=== PATIENT | female | born 1950 | race Caucasian/White ===

== ENCOUNTER 2016-07-16 08:35 | Emergency (ER) | payer MEDICARE ==
[~2016-07-16] VITALS: Ht 152.4 cm; Wt 64.0 kg
[~2016-07-16 08:35] MED LIST: ALPR.25 PO; ATOR20TA42 PO; BACT800T5 PO; CIPR250T2 PO; DILA4TAB10 PO; GLIM1 PO; HYDR50TA5 PO; METF500 PO
[2016-07-16 08:37] VITALS: BP 166/96; PULSE 72; RESP 18; TEMP 98; O2SAT 99
[2016-07-16] MEDS ORDERED: LORazepam 2 MG/ML VIAL IM ONE ×2 (09:00→10:15)
[2016-07-16] MEDS ORDERED: GLIM2TAB PO (09:02)
[2016-07-16] MEDS ORDERED: HYDR50TA3 PO (09:02)
[2016-07-16] MEDS ORDERED: METF500T PO (09:02)
[2016-07-16] MEDS ORDERED: LIPI40TA PO (09:02)
[2016-07-16] MEDS ORDERED: ALPR.5 PO (09:02)
[2016-07-16] MEDS ORDERED: DILA4TAB2 PO (09:03)
--- NOTE | 2016-07-16 09:07 | PD ---
HPI Chief Complaint: Flank/Kidney Pain Time Seen by Provider: 08:59 Travel History International Travel<30 days: No Contact w/Intl Traveler<30days: No Traveled to known affect area: No History of Present Illness HPI Patient presents with a primary complaint of lower back pain and withdrawal- type symptoms. Patient is undergone multiple procedures associated with kidney stones including lithotripsy and stent placements. Over the last month she was taking Dilaudid 4 mg every 4 hours regularly. States she's been tapering off and admits to tremors which she feels are causing her lower back pain. Denies any new chest pain shortness of breath urinary or bowel symptoms. Denies any nausea vomiting diarrhea or fever. PFSH Past Medical History Hx Anticoagulant Therapy: No Anxiety: Yes Depression: Yes Cancer: Yes (COLON-1998) Cardiovascular Problems: No High Cholesterol: Yes Chemotherapy: No Cerebrovascular Accident: No Diabetes: Yes Patient Takes Glucophage: Yes Diminished Hearing: No Diverticulitis: Yes Endocrine: Yes Gastrointestinal Disorders: Yes (DIVERTICULITIS) Genitourinary: No Hepatitis: No Hiatal Hernia: No Hypertension: Yes Immune Disorder: No Kidney Stones: Yes Musculoskeletal: No Neurologic: No Psychiatric: Yes (ANXIETY) Reproductive: No Respiratory: No Thyroid Disease: No Tetanus Vaccination: Unknown ?: Not Menopausal: Yes : 3 Para: 2 Past Surgical History Abdominal Surgery: Yes (COLON RESECTION 1999 2ND TO COLON CA AND DIVERTICULITIS ) Body Medical Devices: NONE Cardiac Surgery: No Ear Surgery: No Endocrine Surgery: No Eye Surgery: No Genitourinary Surgery: Yes (SURGERY TO REMOVE KIDNEY STONES, MULTIPLE LITHOTRIPSY) Gynecologic Surgery: Yes (PARTIAL HYSTERECTOMY) Hysterectomy: Yes Joint Replacement: No Oral Surgery: Yes (TONSILLECTOMY) Pacemaker: No Thoracic Surgery: No Other Surgery: Yes (1987, kidney stone - multiple surgerys) Social History Alcohol Use: Yes (SOCIAL) Tobacco Use: No Substance Use: No Allergies-Medications (Allergen,Severity, Reaction): Coded Allergies: No Known Allergies (Verified , 07/16/16) Reported Meds & Prescriptions Reported Meds & Active Scripts Active Reported Dilaudid (Hydromorphone HCl) 4 Mg Tab 4 Mg PO Q4H PRN Xanax (Alprazolam) 0.5 Mg Tab 0.5 Mg PO Q8H PRN Lipitor (Atorvastatin Calcium) 40 Mg Tab 40 Mg PO HS Hydrochlorothiazide 50 Mg Tab 50 Mg PO BID Metformin (Metformin HCl) 500 Mg Tab 500 Mg PO BIDPC With meals Glimepiride 2 Mg Tab 2 Mg PO DAILY Take with breakfast or first main meal Review of Systems General / Constitutional: No: Fever Eyes: No: Visual changes HENT: No: Headaches Cardiovascular: No: Chest Pain or Discomfort Respiratory: No: Shortness of Breath Gastrointestinal: No: Abdominal Pain Genitourinary: No: Dysuria Musculoskeletal: No: Pain Skin: No Rash Neurologic: No: Weakness Psychiatric: No: Depression Endocrine: No: Polydipsia Hematologic/Lymphatic: No: Easy Bruising Physical Exam Narrative GENERAL: Well-nourished, well-developed patient. SKIN: Focused skin assessment warm/dry. HEAD: Normocephalic. EYES: No scleral icterus. No injection or drainage. NECK: Supple, trachea midline. No JVD or lymphadenopathy. CARDIOVASCULAR: Regular rate and rhythm without murmurs, gallops, or rubs. RESPIRATORY: Breath sounds equal bilaterally. No accessory muscle use. GASTROINTESTINAL: Abdomen soft, non-tender, nondistended. MUSCULOSKELETAL: No cyanosis, or edema. BACK: Nontender without obvious deformity. No CVA tenderness. Data Data Last Documented VS Vital Signs Date Time Temp Pulse Resp B/P Pulse Ox O2 Delivery O2 Flow Rate FiO2 07/16/16 08:37 98.0 72 18 166/96 99 Orders Urinalysis - C+S If Indicated (07/16/16 08:46) Lorazepam Inj (Ativan Inj) (07/16/16 09:00) Urine Culture (07/16/16 08:48) Lorazepam Inj (Ativan Inj) (07/16/16 10:15) Labs Laboratory Tests Test 07/16/16 08:48 Urine Collection Type CLEAN CATCH Urine Color YELLOW Urine Turbidity CLEAR Urine pH 6.5 Urine Specific [place] 1.018 Urine Protein TRACE mg/dL Urine Glucose (UA) NEG mg/dL Urine Ketones NEG mg/dL Urine Occult Blood TRACE Urine Nitrite NEG Urine Bilirubin NEG Urine Leukocyte Esterase NEG Urine RBC 4-9 /hpf Urine WBC 9-14 /hpf Urine WBC Clumps OCC Urine Squamous Epithelial 6-8 /hpf Cells Urine Amorphous Sediment FEW Microscopic Urinalysis Comment CULTURE INDICATED Urine Collection Time 0848 MDM Medical Decision Making Medical Screen Exam Complete: Yes Emergency Medical Condition: Yes Differential Diagnosis Withdrawal symptoms, UTI, nephrolithiasis Narrative Course Assessment and plan discussed with patient and at bedside. Patient received Ativan with improvement of her symptoms. Feeling much more relaxed. Diagnosis Primary Impression: Drug withdrawal Qualified Code: F11.23 - Opioid withdrawal Patient Instructions: General Instructions Additional Instructions: Encouraged rest fluids and Motrin. Continue taper off Dilaudid. Benzodiazepine as needed. Follow-up with PCP. Return to the emergency room with any new onset of symptoms. Continue with urology. Med/Other Pt SpecificInfo: Prescription(s) given Scripts Diazepam (Valium)5 Mg Tab5 Mg PO TID PRN (drug withdrawal) #20 TAB Ref 0 Prov:Daniele Gay MD 07/16/16 Disposition: 01 DISCHARGE HOME Condition: Good Daniele Gay MD Jul 16, 2016 09:07
[2016-07-16 09:11] LABS: BLOOD, URINE TRACE (NEG); GLUCOSE,URINE NEG (NEG); KETONE, URINE NEG (NEG); NITRITE,URINE NEG (NEG); PH, URINE 6.5 (5.0-8.5)
[2016-07-16 09:13] LABS: METHOD OF COLLECTION CLEAN CATCH; URINE COLOR YELLOW (YELLW/STRAW)
[2016-07-16 09:15] LABS: COMMENT (UR) CULTURE INDICATED; COMMENT2 (UR) MUCOUS PRESENT; CULTURE IF INDICATED CULTURE INDICATED
[2016-07-16] MEDS ORDERED: DIAZ5 PO (11:07)
== END 2016-07-16 11:17 | disposition home or self-care (01) ==
LOC: PHED 08:35
DX: F11.23 Opioid dependence with withdrawal (principal); R82.90 Unspecified abnormal findings in urine; M54.5 Low back pain; E78.00 Pure hypercholesterolemia, unspecified; E11.9 Type 2 diabetes mellitus without complications; I10 Essential (primary) hypertension
CPT/HCPCS: 81001; 87086; 96372; 99284; J2060

== ENCOUNTER 2016-07-23 16:21 | Emergency (ER) | payer MEDICARE ==
[~2016-07-23] VITALS: Ht 152.4 cm; Wt 68.5 kg
[~2016-07-23 16:21] MED LIST changes: -ALPR.25 PO; +ALPR.5 PO; -ATOR20TA42 PO; -BACT800T5 PO; -CIPR250T2 PO; +DIAZ5 PO; -DILA4TAB10 PO; +DILA4TAB2 PO; -GLIM1 PO; +GLIM2TAB PO; +HYDR50TA3 PO; -HYDR50TA5 PO; +LIPI40TA PO; -METF500 PO; +METF500T PO
[2016-07-23 16:29] VITALS: BP 123/88; PULSE 86; RESP 18; TEMP 98; O2SAT 96
--- NOTE | 2016-07-23 16:53 | PD ---
HPI Chief Complaint: Abdominal Pain Time Seen by Provider: 16:40 Travel History International Travel<30 days: No Contact w/Intl Traveler<30days: No Traveled to known affect area: No History of Present Illness HPI The patient is a 65-year-old female who presents emergency department complaints of abdominal pain. The patient has a long-standing history of nephrolithiasis with multiple surgeries including stent placement and lithotripsy for her kidney stones. Patient is followed by Dr. Spann and Dr. Reed. The patient recently had a stent removed at the beginning of July and then underwent stone removal last Sunday. The patient states she was told there is too much swelling of the left ureter to retrieve the stone, therefore, they broke the son abuse and laser therapy. The patient was advised she would have some discomfort, however, is having increasing pain in the left lower quadrant and suprapubic region. She denies any obvious hematuria, does note pain in the left lower aspect of her abdomen. The patient called her urologist office and discuss her situation with the physician human services assistant who referred her to the emergency department. The patient denies any fever, chills, or sweats. Symptoms are moderate, possibly exacerbated by recent procedure for kidney stones, and not alleviated with Dilaudid oral medicine at home. PFSH Past Medical History Hx Anticoagulant Therapy: No Anxiety: Yes Depression: Yes Cancer: Yes (COLON-1998) Cardiovascular Problems: No High Cholesterol: Yes Chemotherapy: No Cerebrovascular Accident: No Diabetes: Yes Diminished Hearing: No Diverticulitis: Yes Endocrine: Yes Gastrointestinal Disorders: Yes (DIVERTICULITIS) Genitourinary: No Hepatitis: No Hiatal Hernia: No Hypertension: Yes Immune Disorder: No Kidney Stones: Yes Musculoskeletal: No Neurologic: No Psychiatric: Yes (ANXIETY) Reproductive: No Respiratory: No Thyroid Disease: No ?: Not Menopausal: Yes : 3 Para: 2 Past Surgical History Abdominal Surgery: Yes (COLON RESECTION 1999 TO COLON CA AND DIVERTICULITIS ) Body Medical Devices: NONE Cardiac Surgery: No Ear Surgery: No Endocrine Surgery: No Eye Surgery: No Genitourinary Surgery: Yes (SURGERY TO REMOVE KIDNEY STONES, MULTIPLE LITHOTRIPSY) Gynecologic Surgery: Yes (PARTIAL HYSTERECTOMY) Hysterectomy: Yes Joint Replacement: No Oral Surgery: Yes (TONSILLECTOMY) Pacemaker: No Thoracic Surgery: No Other Surgery: Yes (1987, kidney stone - multiple surgerys) Social History Alcohol Use: Yes (SOCIAL) Tobacco Use: No Substance Use: No Allergies-Medications (Allergen,Severity, Reaction): Coded Allergies: No Known Allergies (Verified , 07/23/16) Reported Meds & Prescriptions Reported Meds & Active Scripts Active Valium (Diazepam) 5 Mg Tab 5 Mg PO TID PRN Reported Dilaudid (Hydromorphone HCl) 4 Mg Tab 4 Mg PO Q4H PRN Xanax (Alprazolam) 0.5 Mg Tab 0.5 Mg PO Q8H PRN Lipitor (Atorvastatin Calcium) 40 Mg Tab 40 Mg PO HS Hydrochlorothiazide 50 Mg Tab 50 Mg PO BID Metformin (Metformin HCl) 500 Mg Tab 500 Mg PO BIDPC With meals Glimepiride 2 Mg Tab 2 Mg PO DAILY Take with breakfast or first main meal Review of Systems Except as stated in HPI: all other systems reviewed are Neg General / Constitutional: No: Fever Cardiovascular: No: Chest Pain or Discomfort Respiratory: No: Shortness of Breath Gastrointestinal: Positive: Abdominal Pain, No: Nausea, Vomiting Genitourinary: Positive: Pelvic Pain, Other (as noted in the history of present illness), No: Hematuria Physical Exam Narrative GENERAL: Awake, alert, pleasant 65-year-old female who appears her stated age and appears in moderate discomfort. SKIN: Focused skin assessment warm/dry. HEAD: Atraumatic. Normocephalic. EYES: No injection or drainage. ENT: No nasal bleeding or discharge. Mucous membranes pink and moist. NECK: Trachea midline. No JVD. CARDIOVASCULAR: Regular rate and rhythm. No murmur appreciated. RESPIRATORY: No accessory muscle use. Clear to auscultation. Breath sounds equal bilaterally. GASTROINTESTINAL: Abdomen soft, mild tenderness left lower quadrant and suprapubic. No guarding or rigidity. Back: No CVA tenderness. MUSCULOSKELETAL: No obvious deformities. No clubbing. No cyanosis. No edema. NEUROLOGICAL: Awake and alert. No obvious cranial nerve deficits. Motor grossly within normal limits. Normal speech. PSYCHIATRIC: Appropriate mood and affect; insight and judgment normal. Data Data Last Documented VS Vital Signs Date Time Temp Pulse Resp B/P Pulse Ox O2 Delivery O2 Flow Rate FiO2 07/23/16 17:52 76 20 117/71 98 Room Air 07/23/16 16:29 98.0 Orders Basic Metabolic Panel (Bmp) (07/23/16 16:48) Complete Blood Count With Diff (07/23/16 16:48) Urinalysis - C+S If Indicated (07/23/16 16:48) Iv Access Insert/Monitor (07/23/16 16:48) Ecg Monitoring (07/23/16 16:48) Oximetry (07/23/16 16:48) Ondansetron Inj (Zofran Inj) (07/23/16 17:00) Sodium Chloride 0.9% Flush (Ns Flush) (07/23/16 17:00) Ketorolac Inj (Toradol Inj) (07/23/16 17:00) Hydromorphone Pf Inj (Dilaudid Pf Inj) (07/23/16 17:00) Sodium Chlorid 0.9% 500 Ml Inj (Ns 500 M (07/23/16 17:00) Labs Laboratory Tests Test 07/23/16 07/23/16 17:00 17:05 Urine Collection Type CLEAN CATCH Urine Color YELLOW Urine Turbidity CLEAR Urine pH 6.[address] 1.015 Urine Protein NEG mg/dL Urine Glucose (UA) NEG mg/dL Urine Ketones NEG mg/dL Urine Occult Blood TRACE Urine Nitrite NEG Urine Bilirubin NEG Urine Leukocyte Esterase NEG Urine RBC 0-3 /hpf Urine Squamous Epithelial 0-5 /hpf Cells Microscopic Urinalysis Comment CULT NOT INDICATED Urine Collection Time 17:00 White Blood Count 6.2 TH/MM3 Red Blood Count 4.46 MIL/MM3 Hemoglobin 13.0 GM/DL Hematocrit 37.8 % Mean Corpuscular Volume 84.8 FL Mean Corpuscular Hemoglobin 29.1 PG Mean Corpuscular Hemoglobin 34.4 % Concent Red Cell Distribution Width 13.4 % Platelet Count 248 TH/MM3 Mean Platelet Volume 7.3 FL Neutrophils (%) (Auto) 41.0 % Lymphocytes (%) (Auto) 47.5 % Monocytes (%) (Auto) 5.7 % Eosinophils (%) (Auto) 3.5 % Basophils (%) (Auto) 2.3 % Neutrophils # (Auto) 2.6 TH/MM3 Lymphocytes # (Auto) 2.9 TH/MM3 Monocytes # (Auto) 0.4 TH/MM3 Eosinophils # (Auto) 0.2 TH/MM3 Basophils # (Auto) 0.1 TH/MM3 CBC Comment DIFF FINAL Differential Comment Sodium Level 141 MEQ/L Potassium Level 3.6 MEQ/L Chloride Level 102 MEQ/L Carbon Dioxide Level 29.8 MEQ/L Anion Gap 9 MEQ/L Blood Urea Nitrogen 24 MG/DL Creatinine 1.00 MG/DL Estimat Glomerular Filtration 56 ML/MIN Rate Random Glucose 142 MG/DL Calcium Level 9.1 MG/DL MDM Medical Decision Making Medical Screen Exam Complete: Yes Emergency Medical Condition: Yes Medical Record Reviewed: Yes Interpretation(s) Laboratory Tests Test 07/23/16 07/23/16 17:00 17:05 Urine Collection Type CLEAN CATCH Urine Color YELLOW Urine Turbidity CLEAR Urine pH 6.[address] 1.015 Urine Protein NEG mg/dL Urine Glucose (UA) NEG mg/dL Urine Ketones NEG mg/dL Urine Occult Blood TRACE Urine Nitrite NEG Urine Bilirubin NEG Urine Leukocyte Esterase NEG Urine RBC 0-3 /hpf Urine Squamous Epithelial 0-5 /hpf Cells Microscopic Urinalysis Comment CULT NOT INDICATED Urine Collection Time 17:00 White Blood Count 6.2 TH/MM3 Red Blood Count 4.46 MIL/MM3 Hemoglobin 13.0 GM/DL Hematocrit 37.8 % Mean Corpuscular Volume 84.8 FL Mean Corpuscular Hemoglobin 29.1 PG Mean Corpuscular Hemoglobin 34.4 % Concent Red Cell Distribution Width 13.4 % Platelet Count 248 TH/MM3 Mean Platelet Volume 7.3 FL Neutrophils (%) (Auto) 41.0 % Lymphocytes (%) (Auto) 47.5 % Monocytes (%) (Auto) 5.7 % Eosinophils (%) (Auto) 3.5 % Basophils (%) (Auto) 2.3 % Neutrophils # (Auto) 2.6 TH/MM3 Lymphocytes # (Auto) 2.9 TH/MM3 Monocytes # (Auto) 0.4 TH/MM3 Eosinophils # (Auto) 0.2 TH/MM3 Basophils # (Auto) 0.1 TH/MM3 CBC Comment DIFF FINAL Differential Comment Sodium Level 141 MEQ/L Potassium Level 3.6 MEQ/L Chloride Level 102 MEQ/L Carbon Dioxide Level 29.8 MEQ/L Anion Gap 9 MEQ/L Blood Urea Nitrogen 24 MG/DL Creatinine 1.00 MG/DL Estimat Glomerular Filtration 56 ML/MIN Rate Random Glucose 142 MG/DL Calcium Level 9.1 MG/DL Differential Diagnosis Differential diagnosis includes nephrolithiasis, postoperative complication, UTI , hydronephrosis, intractable pain. Narrative Course IV was established, labs were drawn and sent, and the patient was placed on cardiac telemetry monitoring and continuous pulse oximetry monitoring. The patient was administered Dilaudid, Toradol, Zofran, and IV fluids. UA was sent to lab. Nursing staff was unable to provide IV access, therefore, I placed a 20 -gauge 1.88 inch ultrasound-guided IV using a linear probe in the right upper extremity. There was good IV blood return and the IV flowed easily, there was no obvious complications. The patient was administered intravenous pain medications. The patient's white count is unremarkable. Creatinine is within normal limits. UA reveals trace blood but no evidence of infection. The patient was reevaluated at 6:15 PM, her pain is significantly improved. She will be discharged home and will be provided a copy of her lab results at discharge so she can follow-up with her urologist tomorrow. Procedures Procedure Narrative Nursing staff was unable to provide IV access. Therefore, I placed a 20-gauge, 1.88 inch, ultrasound-guided IV in the right upper extremity using a linear probe. The IV flowed easily, there was good blood return, the patient tolerated the procedure without difficulty and there was no obvious complications. Diagnosis Primary Impression: Abdominal pain Qualified Code: R10.30 - Lower abdominal pain Patient Instructions: Narcotic given in the ED, General Instructions Additional Instructions: Follow-up with your urologist tomorrow. Please provide the patient a copy of her lab results at discharge. The patient will have a ride home with her who is driving. Return if symptoms worsen or progress. Med/Other Pt SpecificInfo: No Change to Meds Disposition: 01 DISCHARGE HOME Condition: Stable Ty Mills MD Jul 23, 2016 16:53
[2016-07-23] MEDS ORDERED: ONDANSETRON HCL 4 MG/2 ML VIAL IVP ONE (17:00)
[2016-07-23] MEDS ORDERED: SODIUM CHLORIDE 0.9% FLUSH 10 ML FLUSH IV FLUSH PRN (17:00)
[2016-07-23] MEDS ORDERED: HYDROmorphone HCL PF 1 MG/ML VIAL IVS ONE (17:00)
[2016-07-23] MEDS ORDERED: KETOROLAC TROMETHAMINE 30 MG/ML (IVP) VIAL IVP ONE (17:00)
[2016-07-23] MEDS ORDERED: SODIUM CHLORID 0.9% 500 ML INJ 500 ML IV ONE (17:00)
[2016-07-23 17:15] VITALS: PULSE 98; RESP 20; O2SAT 99
[2016-07-23 17:16] LABS: BLOOD, URINE TRACE (NEG); GLUCOSE,URINE NEG (NEG); KETONE, URINE NEG (NEG); NITRITE,URINE NEG (NEG); PH, URINE 6.5 (5.0-8.5)
[2016-07-23 17:17] LABS: AUTOMATED NEUTROPHIL # 2.6 TH/MM3 (1.8-7.7); BASOPHIL # 0.1 TH/MM3 (0-0.2); BASOPHIL % 2.3 % (0.0-2.0); EOSINOPHIL # 0.2 TH/MM3 (0-0.4); EOSINOPHIL % 3.5 % (0.0-4.0); HEMATOCRIT 37.8 % (35.0-46.0); HEMO FLAGS DIFF FINAL; LYMPH % 47.5 % (9.0-44.0); LYMPHOCYTE # 2.9 TH/MM3 (1.0-4.8); MEAN CELL VOLUME 84.8 FL (80.0-100.0); MEAN CORPUSCULAR HEMOGLOBIN 29.1 PG (27.0-34.0); MEAN CORPUSCULAR HGB CONC 34.4 % (32.0-36.0); MONO % 5.7 % (0.0-8.0); PLATELET COUNT 248 TH/MM3 (150-450); RED BLOOD COUNT 4.46 MIL/MM3 (4.00-5.30); RED CELL DISTRIBUTION WIDTH 13.4 % (11.6-17.2); WHITE BLOOD COUNT 6.2 TH/MM3 (4.0-11.0)
[2016-07-23 17:25] LABS: COMMENT (UR) CULT NOT INDICATED; CULTURE IF INDICATED CULT NOT INDICATED; METHOD OF COLLECTION CLEAN CATCH; RBC, URINE 0-3 /hpf (0-3); SQUAMOUS EPITHELIAL CELL URINE 0-5 /hpf (0-5); URINE COLOR YELLOW (YELLW/STRAW)
[2016-07-23 17:28] LABS: POTASSIUM 3.6 MEQ/L (3.5-5.1)
[2016-07-23 17:31] LABS: BICARBONATE 29.8 MEQ/L (21.0-32.0)
[2016-07-23 17:52] VITALS: BP 117/71; PULSE 76; RESP 20; O2SAT 98
[2016-07-23 19:29] VITALS: BP 128/85
== END 2016-07-23 19:33 | disposition home or self-care (01) ==
LOC: PHED 16:21
DX: R10.30 Lower abdominal pain, unspecified (principal)
CPT/HCPCS: 80048; 81001; 85025; 96374; 96375; 99284; J1170; J1885; J2405; J7040

== ENCOUNTER 2016-12-31 18:08 | Inpatient (IN) | payer MEDICARE ==
[~2016-12-31] VITALS: Ht 152.4 cm; Wt 160.0 kg
[~2016-12-31 18:08] MED LIST changes: +DILA4TAB10 PO; -DILA4TAB2 PO
[2016-12-31 18:15] VITALS: BP_SYST 194; BP_DIAS 11; BP_DIAS 111; PULSE 93; RESP 20; TEMP 98.2; O2SAT 98
[2016-12-31 19:17] LABS: BLOOD, URINE MOD (NEG); GLUCOSE,URINE NEG (NEG); KETONE, URINE NEG (NEG); NITRITE,URINE NEG (NEG)
[2016-12-31 19:24] VITALS: BP 178/103; PULSE 86; RESP 16; O2SAT 98
[2016-12-31] MEDS ORDERED: ZOFR4TAB3 SL (19:34)
[2016-12-31 19:37] LABS: MUCUS URINE OCC /lpf (OCC); SQUAMOUS EPITHELIAL CELL URINE 0-5 /hpf (0-5); URINE COLOR YELLOW (YELLW/STRAW)
[2016-12-31 19:38] LABS: COMMENT (UR) CULT NOT INDICATED; CULTURE IF INDICATED CULT NOT INDICATED; WBC, URINE 0-2 /hpf (0-5)
[2016-12-31] MEDS ORDERED: SODIUM CHLORIDE 0.9% FLUSH 10 ML FLUSH IV FLUSH PRN ×2 (20:00→22:00)
[2016-12-31 20:12] LABS: AUTOMATED NEUTROPHIL # 6.3 TH/MM3 (1.8-7.7); BASOPHIL # 0.1 TH/MM3 (0-0.2); BASOPHIL % 0.6 % (0.0-2.0); EOSINOPHIL # 0.1 TH/MM3 (0-0.4); EOSINOPHIL % 1.5 % (0.0-4.0); HEMATOCRIT 40.2 % (35.0-46.0); HEMO FLAGS DIFF FINAL; LYMPHOCYTE # 2.5 TH/MM3 (1.0-4.8); MEAN CELL VOLUME 86.1 FL (80.0-100.0); MEAN CORPUSCULAR HEMOGLOBIN 29.2 PG (27.0-34.0); MEAN CORPUSCULAR HGB CONC 33.9 % (32.0-36.0); MONO % 5.5 % (0.0-8.0); NEUT % 66.4 % (16.0-70.0); PLATELET COUNT 272 TH/MM3 (150-450); RED BLOOD COUNT 4.67 MIL/MM3 (4.00-5.30); RED CELL DISTRIBUTION WIDTH 13.3 % (11.6-17.2); WHITE BLOOD COUNT 9.5 TH/MM3 (4.0-11.0)
[2016-12-31] MEDS ORDERED: ONDANSETRON HCL 4 MG/2 ML VIAL IV PUSH ONE (20:15)
[2016-12-31] MEDS ORDERED: KETOROLAC TROMETHAMINE 30 MG/ML (IVP) VIAL IV PUSH ONE (20:15)
[2016-12-31] MEDS ORDERED: HYDROmorphone HCL PF 1 MG/ML VIAL IV PUSH ONE ×2 (20:15→21:30)
--- NOTE | 2016-12-31 20:17 | PD ---
HPI Chief Complaint: Flank/Kidney Pain Time Seen by Provider: 19:17 Travel History International Travel<30 days: No Contact w/Intl Traveler<30days: No Traveled to known affect area: No History of Present Illness HPI 66 yo f presents to the ED with a cc of L flank pain. She states that a little over a week ago she was treated with lithotripsy for a 9-11mm L sided kidney stone. Following the procedure the pain improved but earlier today she had an attack of sharp pain with associated nausea and rigors. She has a history of medullary sponge kidney and has had 5 episodes of nephrolithiasis over the past year. She has previously had stents placed and has undergone lithotripsy as well. Denies CP/SOB. No headaches or vision changes. She has been able to pass urine, although she states it was bloody. She has no bloody or black stools. PFSH Past Medical History Hx Anticoagulant Therapy: Yes Anxiety: Yes Depression: Yes Cancer: Yes (COLON-1998) Cardiovascular Problems: No High Cholesterol: Yes Chemotherapy: No Cerebrovascular Accident: No Diabetes: Yes Patient Takes Glucophage: Yes Diminished Hearing: No Diverticulitis: Yes Endocrine: Yes Gastrointestinal Disorders: Yes (DIVERTICULITIS) Genitourinary: No Hepatitis: No Hiatal Hernia: No Hypertension: Yes Immune Disorder: No Kidney Stones: Yes Medical other: Yes (HX OF CYTOMEGALO VIRUS) Musculoskeletal: No Neurologic: No Psychiatric: Yes (ANXIETY) Reproductive: No Respiratory: No Thyroid Disease: No ?: Not Menopausal: Yes : 3 Para: 2 Past Surgical History Abdominal Surgery: Yes (COLON RESECTION 1999 2ND TO COLON CA AND DIVERTICULITIS ) Body Medical Devices: NONE Cardiac Surgery: No Ear Surgery: No Endocrine Surgery: No Eye Surgery: No Genitourinary Surgery: Yes (SURGERY TO REMOVE KIDNEY STONES, MULTIPLE LITHOTRIPSY) Gynecologic Surgery: Yes (PARTIAL HYSTERECTOMY) Hysterectomy: Yes Joint Replacement: No Neurologic Surgery: No Oral Surgery: Yes (TONSILLECTOMY) Pacemaker: No Thoracic Surgery: No Other Surgery: Yes (1987, kidney stone - multiple surgerys) Social History Alcohol Use: Yes (SOCIAL) Tobacco Use: No Substance Use: No Allergies-Medications (Allergen,Severity, Reaction): Coded Allergies: No Known Allergies (Verified Allergy, Unknown, 12/31/16) Reported Meds & Prescriptions Reported Meds & Active Scripts Active Valium (Diazepam) 5 Mg Tab 5 Mg PO TID PRN Reported Zofran Odt (Ondansetron Odt) 4 Mg Tab 4 Mg SL ONCE Dilaudid (Hydromorphone HCl) 4 Mg Tab 4 Mg PO Q4H PRN Xanax (Alprazolam) 0.5 Mg Tab 0.5 Mg PO Q8H PRN Lipitor (Atorvastatin Calcium) 40 Mg Tab 40 Mg PO HS Hydrochlorothiazide 50 Mg Tab 50 Mg PO BID Metformin (Metformin HCl) 500 Mg Tab 500 Mg PO BIDPC With meals Glimepiride 2 Mg Tab 2 Mg PO DAILY Take with breakfast or first main meal Review of Systems Except as stated in HPI: all other systems reviewed are Neg Physical Exam Narrative GENERAL: patient is laying in bed no acute distress SKIN: Warm and clammy. HEAD: Atraumatic. Normocephalic. EYES: Pupils equal and round. No scleral icterus. No injection or drainage. ENT: No nasal bleeding or discharge. Mucous membranes pink and moist. NECK: Trachea midline. No JVD. CARDIOVASCULAR: Regular rate and rhythm. RESPIRATORY: No accessory muscle use. Clear to auscultation. Breath sounds equal bilaterally. GASTROINTESTINAL: Abdomen soft, tender to palpation on the L flank and CVA tenderness on the left as well, nondistended. Hepatic and splenic margins not palpable. MUSCULOSKELETAL: Extremities without clubbing, cyanosis, or edema. No obvious deformities. NEUROLOGICAL: Awake and alert. No obvious cranial nerve deficits. Motor grossly within normal limits. Five out of 5 muscle strength in the arms and legs. Normal speech. PSYCHIATRIC: Appropriate mood and affect; insight and judgment normal. Data Data Last Documented VS Vital Signs Date Time Temp Pulse Resp B/P (MAP) Pulse Ox O2 Delivery O2 Flow Rate FiO2 12/31/16 20:37 72 16 166/89 (114) 100 Room Air 12/31/16 18:15 98.2 Orders Orders Urinalysis - C+S If Indicated (12/31/16 18:43) Basic Metabolic Panel (Bmp) (12/31/16 19:54) Complete Blood Count With Diff (12/31/16 19:54) Prothrombin Time / Inr (Pt) (12/31/16 19:54) Act Partial Throm Time (Ptt) (12/31/16 19:54) Iv Access Insert/Monitor (12/31/16 19:54) Ecg Monitoring (12/31/16 19:54) Oximetry (12/31/16 19:54) Sodium Chloride 0.9% Flush (Ns Flush) (12/31/16 20:00) Ct Abd/Pel W/O Iv Contrast (12/31/16 ) Ketorolac Inj (Toradol Inj) (12/31/16 20:15) Hydromorphone Pf Inj (Dilaudid Pf Inj) (12/31/16 20:15) Ondansetron Inj (Zofran Inj) (12/31/16 20:15) Hydromorphone Pf Inj (Dilaudid Pf Inj) (12/31/16 21:30) Admit Order (Ed Use Only) (12/31/16 ) Tamsulosin (Flomax) (12/31/16 22:00) Admit To Inpatient (12/31/16 ) Vital Signs (Adult) Q4H (12/31/16 21:55) Activity Oob Ad Heydi (12/31/16 21:55) Intake + Output TONY.QSHIFT (12/31/16 21:55) Diet Regular Basic (01/01/17 Breakfast) Sodium Chlor 0.9% 1000 Ml Inj (Ns 1000 M (12/31/16 21:55) Sodium Chloride 0.9% Flush (Ns Flush) (12/31/16 22:00) Sodium Chloride 0.9% Flush (Ns Flush) (01/01/17 09:00) Ondansetron Inj (Zofran Inj) (12/31/16 22:00) Comprehensive Metabolic Panel (01/01/17 06:00) Complete Blood Count With Diff (01/01/17 06:00) Scd Bilateral/Knee High TONY.BID (12/31/16 21:55) David Bilateral/Knee High TONY.QSHIFT (12/31/16 22:00) Acetaminophen (Tylenol) (12/31/16 22:00) Hydromorphone Pf Inj (Dilaudid Pf Inj) (12/31/16 22:00) Hydromorphone (Dilaudid) (12/31/16 22:00) Docusate Sodium-Senna (Tenisha-Colace) (01/01/17 09:00) Magnesium Hydroxide Liq (Milk Of Magnesi (12/31/16 22:00) Sennosides (Senokot) (12/31/16 22:00) Bisacodyl Supp (Dulcolax Supp) (12/31/16 22:00) Lactulose Liq (Lactulose Liq) (12/31/16 22:00) Inpatient Certification (12/31/16 ) Consult Urology (12/31/16 ) Alprazolam (Xanax) (12/31/16 22:00) Labs Laboratory Tests Test 12/31/16 19:00 12/31/16 20:00 Urine Color YELLOW Urine Turbidity CLEAR Urine pH 6.0 Urine Specific [place] 1.013 Urine Protein NEG mg/dL Urine Glucose (UA) NEG mg/dL Urine Ketones NEG mg/dL Urine Occult Blood MOD Urine Nitrite NEG Urine Bilirubin NEG Urine Leukocyte Esterase NEG Urine RBC 4-9 /hpf Urine WBC 0-2 /hpf Urine Squamous Epithelial Cells 0-5 /hpf Urine Mucus OCC /lpf Microscopic Urinalysis Comment CULT NOT INDICATED White Blood Count 9.5 TH/MM3 Red Blood Count 4.67 MIL/MM3 Hemoglobin 13.6 GM/DL Hematocrit 40.2 % Mean Corpuscular Volume 86.1 FL Mean Corpuscular Hemoglobin 29.2 PG Mean Corpuscular Hemoglobin Concent 33.9 % Red Cell Distribution Width 13.3 % Platelet Count 272 TH/MM3 Mean Platelet Volume 7.4 FL Neutrophils (%) (Auto) 66.4 % Lymphocytes (%) (Auto) 26.0 % Monocytes (%) (Auto) 5.5 % Eosinophils (%) (Auto) 1.5 % Basophils (%) (Auto) 0.6 % Neutrophils # (Auto) 6.3 TH/MM3 Lymphocytes # (Auto) 2.5 TH/MM3 Monocytes # (Auto) 0.5 TH/MM3 Eosinophils # (Auto) 0.1 TH/MM3 Basophils # (Auto) 0.1 TH/MM3 CBC Comment DIFF FINAL Differential Comment Prothrombin Time 10.1 SEC Prothromb Time International Ratio 0.9 RATIO Activated Partial Thromboplast Time 25.9 SEC Blood Urea Nitrogen 21 MG/DL Creatinine 0.83 MG/DL Random Glucose 205 MG/DL Calcium Level 9.1 MG/DL Sodium Level 139 MEQ/L Potassium Level 3.2 MEQ/L Chloride Level 104 MEQ/L Carbon Dioxide Level 24.3 MEQ/L Anion Gap 11 MEQ/L Estimat Glomerular Filtration Rate 69 ML/MIN MDM Medical Decision Making Medical Screen Exam Complete: Yes Emergency Medical Condition: Yes Differential Diagnosis nephrolithiasis, hydronephrosis, pyelonephritis, perinephric abscess unlikely, medullary sponge kidney Narrative Course Patient roomed emergency department, she does take 4 mg tablets of Dilaudid at home for intermittent kidney pain. She's given a milligram of Dilaudid as well as Toradol. Labs are fairly reassuring, CAT scan noncontrast the abdomen does show 4.5 mm UPJ stone which is obstructing. There is significant amount of hydronephrosis on the left as well. The patient was counseled carefully, she still having some pain in addition dose of Dilaudid was ordered. She couldn't ferry go home to follow-up with her urologist this week. I informed her that this is a reasonable option only for pain is fairly well-controlled. She is fairly anxious and states that she thinks that they've wanted here is working but she is unsure as to when she goes home. I also informed her that she could return to the emergency department. Sufficiently anxious the patient is now agreeable for admission to the hospital. Patient was discussed with Dr. Ramone Domingo who is on-call for urology, her urologist does not come to this hospital. He recommends Flomax observation for pain control and he will see in consultation. Patient was then discussed with Dr. Alston for admission. Diagnosis Primary Impression: Obstructive uropathy Admitting Information Admitting Physician Requests: Observation Condition: Stable José Manuel Bauer MD Dec 31, 2016 20:17
[2016-12-31 20:21] LABS: POTASSIUM 3.2 MEQ/L (3.5-5.1)
[2016-12-31 20:24] LABS: BICARBONATE 24.3 MEQ/L (21.0-32.0)
[2016-12-31 20:27] LABS: APTT (PATIENT) 25.9 SEC (24.3-30.1); INTERNATIONAL NORMALIZED RATIO 0.9 RATIO; PROTHROMBIN TIME - PATIENT 10.1 SEC (9.8-11.6)
[2016-12-31 20:37] VITALS: BP 166/89; PULSE 72; RESP 16; O2SAT 100
--- NOTE | 2016-12-31 20:58 | RADRPT ---
EXAM DATE/TIME: 12/31/2016 20:16 [place] COMPARISON: No previous studies available for comparison. INDICATIONS : Left flank pain. ORAL CONTRAST: No oral contrast ingested. RADIATION DOSE: 20.27 CTDIvol (mGy) MEDICAL HISTORY : Diverticulitis. Carcinoma, colon. Diabetes mellitus type 2.Hypertension. SURGICAL HISTORY : Colon resection. Hysterectomy. ENCOUNTER: Initial ACUITY: 3 days PAIN SCALE: 10/10 LOCATION: Left flank TECHNIQUE: Volumetric scanning of the abdomen and pelvis was performed. Using automated exposure control and ad justment of the mA and/or kV according to patient size, radiation dose was kept as low as reasonably achievable to obtain optimal diagnostic quality images. DICOM format image data is available electro nically for review and comparison. FINDINGS: There is a left sided obstructive uropathy and moderate left hydronephrosis. The largest calculus in the ureter is at the left UVJ measuring about 4.5 mm in diameter. There are numerous additional 1-2 m m calculi within the distal left ureter above the 4.5 mm calculus. Innumerable calculi are present in both kidneys ranging in size from about 1 mm to 6 mm on the left and 1 mm to 3 mm on the right. No r ight-sided hydronephrosis or obstructive uropathy. Diffuse fatty liver. Spleen, adrenals and pancreas unremarkable. No free fluid. No bowel obstruction. Mild constipation. Mild scoliosis. CONCLUSION: 1. Left sided obstructive uropathy and moderate left hydronephrosis with a 4.5 mm calculus at the lef t UVJ. There are numerous additional 1-2 mm calculi in the distal 5 cm of the left ureter. No right-s ided obstructive uropathy. Numerous calculi in both kidneys as above. 2. Hepatic steatosis. Fly Marsh MD on December 31, 2016 at 20:47 Board Certified Radiologist. This report was verified electronically.
[2016-12-31] MEDS ORDERED: SODIUM CHLOR 0.9% 1000 ML INJ 1,000 ML IV SCH (21:55)
[2016-12-31] MEDS ORDERED: ACETAMINOPHEN 325 MG TAB PO PRN (22:00)
[2016-12-31] MEDS ORDERED: BISACODYL 10 MG SUPP RECTAL PRN (22:00)
[2016-12-31] MEDS ORDERED: MAGNESIUM HYDROXIDE SUSP 30 ML CUP PO PRN (22:00)
[2016-12-31] MEDS ORDERED: SENNOSIDES 8.6 MG TAB PO PRN (22:00)
[2016-12-31] MEDS ORDERED: HYDROmorphone HCL 2 MG TAB PO PRN (22:00)
[2016-12-31] MEDS ORDERED: LACTULOSE SYRUP 20 GM/30 ML CUP PO PRN (22:00)
[2016-12-31 22:20] VITALS: BP 166/77; PULSE 72; RESP 18
[2016-12-31] MEDS: TAMSULOSIN HCL 0.4 MG CAP PO SCH (22:31)
[2016-12-31] MEDS: ALPRAZolam 0.5 MG TAB PO PRN (23:12)
[2016-12-31 23:59] VITALS: BP 193/93; PULSE 68; RESP 18; TEMP 96.8; O2SAT 94
[2017-01-01] MEDS ORDERED: ENALAPRILAT 1.25 MG/ML VIAL IV PUSH ONE
[2017-01-01] MEDS: HYDROmorphone HCL PF 1 MG/ML VIAL IV PUSH PRN ×5 (03:32→21:30)
[2017-01-01] MEDS: ONDANSETRON HCL 4 MG/2 ML VIAL IVP PRN ×3 (03:43→19:00)
[2017-01-01 04:00] VITALS: BP 137/69; PULSE 70; RESP 18; TEMP 98.2; O2SAT 95
[2017-01-01 06:02] LABS: AUTOMATED NEUTROPHIL # 7.5 TH/MM3 (1.8-7.7); BASOPHIL % 0.1 % (0.0-2.0); EOSINOPHIL % 0.1 % (0.0-4.0); HEMATOCRIT 37.5 % (35.0-46.0); HEMO FLAGS DIFF FINAL; LYMPH % 13.8 % (9.0-44.0); LYMPHOCYTE # 1.3 TH/MM3 (1.0-4.8); MEAN CELL VOLUME 86.5 FL (80.0-100.0); MEAN CORPUSCULAR HEMOGLOBIN 28.6 PG (27.0-34.0); MEAN CORPUSCULAR HGB CONC 33.1 % (32.0-36.0); MONO % 4.8 % (0.0-8.0); NEUT % 81.2 % (16.0-70.0); PLATELET COUNT 251 TH/MM3 (150-450); RED BLOOD COUNT 4.34 MIL/MM3 (4.00-5.30); RED CELL DISTRIBUTION WIDTH 13.3 % (11.6-17.2); WHITE BLOOD COUNT 9.2 TH/MM3 (4.0-11.0)
[2017-01-01 06:21] LABS: CHLORIDE 105 MEQ/L (98-107); POTASSIUM 3.4 MEQ/L (3.5-5.1); SODIUM (NA) 141 MEQ/L (136-145)
[2017-01-01 06:26] LABS: ANION GAP 9 MEQ/L (5-15); BICARBONATE 27.2 MEQ/L (21.0-32.0); BLOOD UREA NITROGEN 22 MG/DL (7-18)
[2017-01-01 06:29] LABS: ALT (GPT) 38 U/L (10-53); AST (GOT) 18 U/L (15-37); GLOMERULAR FILTRATION RATE 80 ML/MIN (>89)
[2017-01-01 06:30] LABS: TOTAL BILIRUBIN ADULT 0.7 MG/DL (0.2-1.0)
[2017-01-01 06:32] LABS: ALKALINE PHOSPHATASE 50 U/L (45-117)
[2017-01-01 08:00] VITALS: BP 131/73; PULSE 65; RESP 16; TEMP 98.2; O2SAT 97
--- NOTE | 2017-01-01 08:44 | HHI.HP ---
[facility] Stanley Perez MD Admission Diagnosis Obstructive Uropathy. Diagnoses: (1) Abdominal pain Diagnosis: Principal (2) Obstructive uropathy Diagnosis: Principal Chief Complaint: Abdominal pain Travel History International Travel<30 Days: No Contact w/Intl Traveler <30 Da: No Traveled to Known Affected Are: No History of Present Illness Written by Tank Brewer, acting as scribe for Dr. Oleary on 01/01/17 at 08 :42. 66-year-old female with rather complex history of renal lithiasis, medullary kidney, diabetes who presented to hospital because acute onset abdominal pain. Patient states that she has normal state of health until 9:30 yesterday morning when she was sitting watching TV and got a sudden onset of sharp stabbing pain in her left flank radiating down into her groin. She states the pain was a 14/10 on a pain scale. Patient does have recent history of urological procedures and she has chronic recurrent renal lithiasis, because of those reasons she knew that she had another kidney stones that he came to the hospital for evaluation. Patient did just had lithotripsy on December 22. She is followed by Dr. Vazquez on a regular basis. She does have follow-up appointment with him next week from her recent lithotripsy. Patient had workup done emergency department and found to have obstructive uropathy with 4.5 mm calculus at the left UVJ junction with moderate left hydronephrosis. Patient denies any fever, chills, dysuria, hematuria. She has had persistent nausea and vomiting despite use of Zofran. Patient was admitted the hospital for further evaluation management. Review of Systems Gastrointestinal: COMPLAINS OF: Abdominal pain Except as stated in HPI: all other systems reviewed are Neg Past Family Social History Past Medical History Recurrent renal lithiasis Medullary kidney Diabetes History diverticulitis Hypertension Hyperlipidemia Past Surgical History Partial colectomy Multiple cystoscopies, lithotripsy Hysterectomy Right thumb surgery Tonsillectomy Reported Medications Reported Meds & Active Scripts Active Valium (Diazepam) 5 Mg Tab 5 Mg PO TID PRN Reported Zofran Odt (Ondansetron Odt) 4 Mg Tab 4 Mg SL ONCE Dilaudid (Hydromorphone HCl) 4 Mg Tab 4 Mg PO Q4H PRN Xanax (Alprazolam) 0.5 Mg Tab 0.5 Mg PO Q8H PRN Lipitor (Atorvastatin Calcium) 40 Mg Tab 40 Mg PO HS Hydrochlorothiazide 50 Mg Tab 50 Mg PO BID Metformin (Metformin HCl) 500 Mg Tab 500 Mg PO BIDPC With meals Glimepiride 2 Mg Tab 2 Mg PO DAILY Take with breakfast or first main meal Allergies: Coded Allergies: No Known Allergies (Verified Allergy, Unknown, 12/31/16) Family History Reviewed is significant for father with kidney and colon cancer, mother with heart disease and dementia Social History Patient denies any tobacco, alcohol or illicit drugs Physical Exam Vital Signs Vital Signs Date Time Temp Pulse Resp B/P (MAP) Pulse Ox O2 Delivery O2 Flow Rate FiO2 01/01/17 04:00 98.2 70 18 137/69 (91) 95 12/31/16 23:59 96.8 68 18 193/93 (126) 94 12/31/16 22:20 72 18 166/77 (106) 12/31/16 20:37 72 16 166/89 (114) 100 Room Air 12/31/16 19:24 86 16 178/103 (128) 98 Room Air 12/31/16 18:15 98.2 93 20 194/111 (138) 98 Physical Exam GENERAL: Well-developed, well-nourished, in no acute distress. alert and orientated HEENT: Head is normocephalic without any lesions or masses noted. Facial features are symmetric. Eyes: Pupils equal round reactive to light. Extraocular muscles are intact. Conjunctivae were clear. Oropharyngeal: Pharynx without any erythema edema. Tongue is midline without deviation. Buccal mucosa is moist without any masses or lesions NECK: Supple without any masses. Trachea midline no deviation. No JVD, no bruits are appreciated CARDIAC: Regular rhythm, regular rate. S1/S2 are heard. 2 or 6 ejection murmur , no gallops or rubs. LUNGS: Clear to auscultation bilaterally. No wheeze, rhonchi or rales. No use of accessory muscles on inspiration or expiration. ABDOMEN: Soft, tenderness noted in the left lower quadrant. Nondistended. Bowel sounds heard in all 4 quadrants. No organomegaly or masses. Negative rebound, negative guarding EXTREMITIES: No edema, pulses are equal bilaterally. No cyanosis or clubbing NEUROLOGY: Mood and affect appear appropriate. Cranial nerves II through XII grossly intact. Muscle strength 5/5 in upper and lower extremities bilaterally. Deep tendon reflexes are 2+ in upper and lower extremities bilaterally. Laboratory Laboratory Tests Test 12/31/16 19:00 12/31/16 20:00 01/01/17 05:35 Urine Color YELLOW Urine Turbidity CLEAR Urine pH 6.0 Urine Specific [place] 1.013 Urine Protein NEG Urine Glucose (UA) NEG Urine Ketones NEG Urine Occult Blood MOD Urine Nitrite NEG Urine Bilirubin NEG Urine Leukocyte Esterase NEG Urine RBC 4-9 Urine WBC 0-2 Urine Squamous Epithelial Cells 0-5 Urine Mucus OCC Microscopic Urinalysis Comment CULT NOT INDICATED White Blood Count 9.5 9.2 Red Blood Count 4.67 4.34 Hemoglobin 13.6 12.4 Hematocrit 40.2 37.5 Mean Corpuscular Volume 86.1 86.5 Mean Corpuscular Hemoglobin 29.2 28.6 Mean Corpuscular Hemoglobin Concent 33.9 33.1 Red Cell Distribution Width 13.3 13.3 Platelet Count 272 251 Mean Platelet Volume 7.4 7.5 Neutrophils (%) (Auto) 66.4 81.2 Lymphocytes (%) (Auto) 26.0 13.8 Monocytes (%) (Auto) 5.5 4.8 Eosinophils (%) (Auto) 1.5 0.1 Basophils (%) (Auto) 0.6 0.1 Neutrophils # (Auto) 6.3 7.5 Lymphocytes # (Auto) 2.5 1.3 Monocytes # (Auto) 0.5 0.4 Eosinophils # (Auto) 0.1 0.0 Basophils # (Auto) 0.1 0.0 CBC Comment DIFF FINAL DIFF FINAL Differential Comment Prothrombin Time 10.1 Prothromb Time International Ratio 0.9 Activated Partial Thromboplast Time 25.9 Blood Urea Nitrogen 21 22 Creatinine 0.83 0.73 Random Glucose 205 206 Calcium Level 9.1 8.5 Sodium Level 139 141 Potassium Level 3.2 3.4 Chloride Level 104 105 Carbon Dioxide Level 24.3 27.2 Anion Gap 11 9 Estimat Glomerular Filtration Rate 69 80 Total Protein 6.8 Albumin 3.5 Alkaline Phosphatase 50 Aspartate Amino Transf (AST/SGOT) 18 Alanine Aminotransferase (ALT/SGPT) 38 Total Bilirubin 0.7 Result Diagram: 01/01/1735 01/01/1735 Caprini VTE Risk Assessment Caprini VTE Risk Assessment: Mod/High Risk (score >= 2) Caprini Risk Assessment Model Point Value = 1 Point Value = 2 Point Value = 3 Point Value = 5 Age 41-60 Minor surgery BMI > 25 kg/m2 Swollen legs Varicose veins or History of unexplained or recurrent spontaneous Oral contraceptives or hormone replacement Sepsis (< 1 month) Serious lung disease, including pneumonia (< 1 month) Abnormal pulmonary function Acute myocardial infarction Congestive heart failure (< 1 month) History of inflammatory bowel disease Medical patient at bed rest Age 61-74 Arthroscopic surgery Major open surgery (> 45 min) Laparoscopic surgery (> 45 min) Malignancy Confined to bed (> 72 hours) Immobilizing plaster cast Central venous access Age >= 75 History of VTE Family history of VTE Factor V Leiden Prothrombin [id number] Lupus anticoagulant Anticardiolipin antibodies Elevated serum homocysteine Heparin-induced thrombocytopenia Other congenital or acquired thrombophilia Stroke (< 1 month) Elective arthroplasty Hip, pelvis, or leg fracture Acute spinal cord injury (< 1 month) Prophylaxis Regimen Total Risk Factor Score Risk Level Prophylaxis Regimen 0-1 Low Early ambulation 2 Moderate Order ONE of the following: *Sequential Compression Device (SCD) *Heparin 5000 units SQ BID 3-4 Higher Order ONE of the following medications: *Heparin 5000 units SQ TID *Enoxaparin/Lovenox 40 mg SQ daily (WT < 150 kg, CrCl > 30 mL/min) *Enoxaparin/Lovenox 30 mg SQ daily (WT < 150 kg, CrCl > 10-29 mL/min) *Enoxaparin/Lovenox 30 mg SQ BID (WT < 150 kg, CrCl > 30 mL/min) AND/OR *Sequential Compression Device (SCD) 5 or more Highest Order ONE of the following medications: *Heparin 5000 units SQ TID (Preferred with Epidurals) *Enoxaparin/Lovenox 40 mg SQ daily (WT < 150 kg, CrCl > 30 mL/min) *Enoxaparin/Lovenox 30 mg SQ daily (WT < 150 kg, CrCl > 10-29 mL/min) *Enoxaparin/Lovenox 30 mg SQ BID (WT < 150 kg, CrCl > 30 mL/min) AND *Sequential Compression Device (SCD) Assessment and Plan Problem List: (1) Left nephrolithiasis ICD Code: N20.0 - Calculus of kidney (2) Recurrent nephrolithiasis ICD Code: N20.0 - Calculus of kidney Assessment and Plan 66 yrs old female with Left renal lithiasis at UVJ junction with moderate hydronephrosis CT scan does show multiple stones noted in bilateral kidneys. There is a 4.5 mm calculus at the left UVJ junction with moderate hydronephrosis. Discussed with patient's primary urologist Dr. Vazquez office who indicates that she had a bite of food, they aren't able to perform any procedure today Discuss with Dr. Heard, who planned for cystoscopy with stenting this afternoon This was discussed with the patient extensively about outpatient versus inpatient treatment. Patient will like to remain in the hospital for inpatient treatment Continue IV fluids, pain control, antiemetic next line Continue Flomax Accelerated hypertension Blood pressure improved after single dose of Vasotec Continue monitor blood pressure DVT prevention Sequential compression devices, avoid chemical prophylaxis secondary to planned procedure This note was transcribed by jacque Brewer. I, Dr. Shaheen Oleary personally performed the history, physical exam, and medical decision making; and confirmed the accuracy of the information in the transcribed note. Authenticated by Dr. Shaheen Oleary on 01/01/17 at 08:42. Code Status Full code Discussed Condition With Patient, Physician Certification 2 Midnight Certification Type: Admission for Inpatient Services Order for Inpatient Services The services are ordered in accordance with Medicare regulations or non- Medicare payer requirements, as applicable. In the case of services not specified as inpatient-only, they are appropriately provided as inpatient services in accordance with the 2-midnight benchmark. Estimated LOS (days): 2 days is the estimated time the patient will need to remain in the hospital, assuming treatment plan goals are met and no additional complications. Post-Hospital Plan: Not yet determined Tank Brewer Jan 01, 2017 08:44 Shaheen Oleary MD Jan 01, 2017 08:45
[2017-01-01] MEDS: SODIUM CHLORIDE 0.9% FLUSH 10 ML FLUSH IV FLUSH SCH ×2 (09:00→21:33)
[2017-01-01] MEDS: DOCUSATE SODIUM 50 MG/SENNA 8.6 MG TAB PO SCH ×2 (09:00→21:32)
[2017-01-01] MEDS: TAMSULOSIN HCL 0.4 MG CAP PO SCH (09:04)
[2017-01-01] MEDS: ALPRAZolam 0.5 MG TAB PO PRN (09:04)
[2017-01-01 12:00] VITALS: BP 130/78; PULSE 59; RESP 18; TEMP 98.2; O2SAT 97
[2017-01-01] MEDS ORDERED: GLUCAGON 1 MG/ML VIAL OTHER PRN (12:30)
[2017-01-01] MEDS ORDERED: DEXTROSE 50% IN WATER 50 ML VIAL(D50) IV PUSH PRN (12:30)
[2017-01-01] MEDS ORDERED: diphenhydrAMINE HCL 50 MG/ML VIAL IV PUSH PRN (13:30)
[2017-01-01] MEDS ORDERED: ACETAMINOPHEN 1000 MG/100 ML 0 ML IV ONE (14:35)
--- NOTE | 2017-01-01 14:47 | PD.CONS ---
HPI Service Urology Consult Requested By Reason for Consult Nephrolithiasis Primary Care Physician Stanley Perez MD Diagnosis: (1) Left nephrolithiasis ICD Code: N20.0 - Calculus of kidney (2) Recurrent nephrolithiasis ICD Code: N20.0 - Calculus of kidney History of Present Illness 66yo female with history of nephrolithiasis admitted with persistent severe left flank pain and distal obstructing ureteral stone. Patient has been followed by Dr. Reed and underwent recent lithotripsy over a week ago. She was doing well until last night she developed acute onset of left flank pain that was severe, 10/10, radiating to the left groin. CT scan identified severe left sided hydronephrosis with obstructing 4-5mm left distal ureteral stone with several stone proximal to this. No fevers, +N/V. Review of Systems ROS Limitations: Clinical Condition Constitutional: DENIES: Fever Endocrine: DENIES: Abnorml menstrual pattern Eyes: DENIES: Diplopia Ears, nose, mouth, throat: DENIES: Hearing loss Respiratory: DENIES: Apneas, Cough Cardiovascular: DENIES: Chest pain Gastrointestinal: COMPLAINS OF: Abdominal pain, Nausea, Vomiting Genitourinary: COMPLAINS OF: Urinary frequency Musculoskeletal: DENIES: Joint pain Integumentary: DENIES: Rash Hematologic/lymphatic: DENIES: Bruising Neurologic: DENIES: Headache Psychiatric: DENIES: Anxiety Except as stated in HPI: all other systems reviewed are Neg Past Family Social History Past Medical History Recurrent renal lithiasis Medullary kidney Diabetes History diverticulitis Hypertension Hyperlipidemia Past Surgical History Partial colectomy Multiple cystoscopies, lithotripsy Hysterectomy Right thumb surgery Tonsillectomy Reported Medications Reported Meds & Active Scripts Active Valium (Diazepam) 5 Mg Tab 5 Mg PO TID PRN Reported Zofran Odt (Ondansetron Odt) 4 Mg Tab 4 Mg SL ONCE Dilaudid (Hydromorphone HCl) 4 Mg Tab 4 Mg PO Q4H PRN Xanax (Alprazolam) 0.5 Mg Tab 0.5 Mg PO Q8H PRN Lipitor (Atorvastatin Calcium) 40 Mg Tab 40 Mg PO HS Hydrochlorothiazide 50 Mg Tab 50 Mg PO BID Metformin (Metformin HCl) 500 Mg Tab 500 Mg PO BIDPC With meals Glimepiride 2 Mg Tab 2 Mg PO DAILY Take with breakfast or first main meal Allergies: Coded Allergies: No Known Allergies (Verified Allergy, Unknown, 12/31/16) Active Ordered Medications Current Medications Medications (Trade) Dose Ordered Sig/Winnie Route Start Time Stop Time Status Last Admin (Flomax) 0.4 mg DAILY PO 12/31/16 22:00 01/01/17 09:04 (NS Flush) 2 ml UNSCH PRN IV FLUSH 12/31/16 22:00 (NS Flush) 2 ml BID IV FLUSH 01/01/17 09:00 01/01/17 09:00 (Zofran Inj) 4 mg Q6H PRN IVP 12/31/16 22:00 01/01/17 10:44 (Tylenol) 650 mg Q6H PRN PO 12/31/16 22:00 (Dilaudid Pf Inj) 1 mg Q3H PRN IV PUSH 12/31/16 22:00 01/01/17 13:38 (Dilaudid) 4 mg Q4H PRN PO 12/31/16 22:00 (Tenisha-Colace) 1 tab BID PO 01/01/17 09:00 (Milk Of Magnesia Liq) 30 ml Q12H PRN PO 12/31/16 22:00 (Senokot) 17.2 mg Q12H PRN PO 12/31/16 22:00 (Dulcolax Supp) 10 mg DAILY PRN RECTAL 12/31/16 22:00 (Lactulose Liq) 30 ml DAILY PRN PO 12/31/16 22:00 (Xanax) 0.5 mg Q8H PRN PO 12/31/16 22:00 01/01/17 09:04 Potassium Chloride/Sodium Chloride 1,000 ml @ 100 mls/hr Q10H IV 01/01/17 09:00 (D50w (Vial) Inj) 50 ml UNSCH PRN IV PUSH 01/01/17 12:30 (Glucagon Inj) 1 mg UNSCH PRN OTHER 01/01/17 12:30 (NovoLOG SUPPLEMENTAL SCALE) 1 ACHS SLIDING SCALE SQ 01/01/17 17:00 (Benadryl Inj) 25 mg Q6H PRN IV PUSH 01/01/17 13:30 01/01/17 13:37 Family History Reviewed is significant for father with kidney and colon cancer, mother with heart disease and dementia Social History Patient denies any tobacco, alcohol or illicit drugs Physical Exam Vital Signs Date Time Temp Pulse Resp B/P (MAP) Pulse Ox O2 Delivery O2 Flow Rate FiO2 01/01/17 12:00 98.2 59 18 130/78 (95) 97 01/01/17 08:00 98.2 65 16 131/73 (92) 97 01/01/17 04:00 98.2 70 18 137/69 (91) 95 12/31/16 23:59 96.8 68 18 193/93 (126) 94 12/31/16 22:20 72 18 166/77 (106) 12/31/16 20:37 72 16 166/89 (114) 100 Room Air 12/31/16 19:24 86 16 178/103 (128) 98 Room Air 12/31/16 18:15 98.2 93 20 194/111 (138) 98 Physical Exam GENERAL: This is a well-nourished, well-developed patient, in no apparent distress. SKIN: No rashes, ecchymoses or lesions. Cool and dry. HEAD: Atraumatic. Normocephalic. EYES: Extraocular motions intact. No scleral icterus. No injection or drainage. ENT: Nose without bleeding, purulent drainage. Airway patent. NECK: Trachea midline. No JVD or lymphadenopathy. Supple, nontender, no meningeal signs. CARDIOVASCULAR: Normal pulses RESPIRATORY: Nonlabored GASTROINTESTINAL: Abdomen soft, non-tender, nondistended. MUSCULOSKELETAL: Extremities without clubbing, cyanosis NEUROLOGICAL: Awake and alert. Motor and sensory grossly within normal limits. Normal speech. Lab results reviewed: Yes Laboratory Tests Test 12/31/16 19:00 12/31/16 20:00 01/01/17 05:35 Urine Color YELLOW Urine Turbidity CLEAR Urine pH 6.0 Urine Specific [place] 1.013 Urine Protein NEG Urine Glucose (UA) NEG Urine Ketones NEG Urine Occult Blood MOD Urine Nitrite NEG Urine Bilirubin NEG Urine Leukocyte Esterase NEG Urine RBC 4-9 Urine WBC 0-2 Urine Squamous Epithelial Cells 0-5 Urine Mucus OCC Microscopic Urinalysis Comment CULT NOT INDICATED White Blood Count 9.5 9.2 Red Blood Count 4.67 4.34 Hemoglobin 13.6 12.4 Hematocrit 40.2 37.5 Mean Corpuscular Volume 86.1 86.5 Mean Corpuscular Hemoglobin 29.2 28.6 Mean Corpuscular Hemoglobin Concent 33.9 33.1 Red Cell Distribution Width 13.3 13.3 Platelet Count 272 251 Mean Platelet Volume 7.4 7.5 Neutrophils (%) (Auto) 66.4 81.2 Lymphocytes (%) (Auto) 26.0 13.8 Monocytes (%) (Auto) 5.5 4.8 Eosinophils (%) (Auto) 1.5 0.1 Basophils (%) (Auto) 0.6 0.1 Neutrophils # (Auto) 6.3 7.5 Lymphocytes # (Auto) 2.5 1.3 Monocytes # (Auto) 0.5 0.4 Eosinophils # (Auto) 0.1 0.0 Basophils # (Auto) 0.1 0.0 CBC Comment DIFF FINAL DIFF FINAL Differential Comment Prothrombin Time 10.1 Prothromb Time International Ratio 0.9 Activated Partial Thromboplast Time 25.9 Blood Urea Nitrogen 21 22 Creatinine 0.83 0.73 Random Glucose 205 206 Calcium Level 9.1 8.5 Sodium Level 139 141 Potassium Level 3.2 3.4 Chloride Level 104 105 Carbon Dioxide Level 24.3 27.2 Anion Gap 11 9 Estimat Glomerular Filtration Rate 69 80 Total Protein 6.8 Albumin 3.5 Alkaline Phosphatase 50 Aspartate Amino Transf (AST/SGOT) 18 Alanine Aminotransferase (ALT/SGPT) 38 Total Bilirubin 0.7 Result Diagram: 01/01/17 0535 01/01/17 0535 Personally reviewed images: Yes Imaging Last Impressions Abdomen/Pelvis CT 12/31/16 0000 Signed Impressions: Service Date/Time: Saturday, December 31, 2016 20:16 - CONCLUSION: 1. Left sided obstructive uropathy and moderate left hydronephrosis with a 4.5 mm calculus at the left UVJ. There are numerous additional 1-2 mm calculi in the distal 5 cm of the left ureter. No right-sided obstructive uropathy. Numerous calculi in both kidneys as above. 2. Hepatic steatosis. Fly Marsh MD Assessment and Plan Problem List: (1) Obstructive uropathy ICD Code: N13.9 - Obstructive and reflux uropathy, unspecified (2) Recurrent nephrolithiasis ICD Code: N20.0 - Calculus of kidney (3) Left nephrolithiasis ICD Code: N20.0 - Calculus of kidney Assessment and Plan -Her pain is uncontrolled with Dilaudid and Toradol -We discussed intervention with left ureteral stent placement -Patient understands the risks and benefits of the procedure and we will proceed with left ureteral stent placement -She already has a follow-up appt with Dr. Reed next week Delvin Heard MD Jan 01, 2017 14:47
[2017-01-01] MEDS ORDERED: LACTATED RINGER'S 1000 ML INJ 1,000 ML ONE (14:50)
[2017-01-01] MEDS ORDERED: ceFAZolin INJ 1,000 MG VIAL IV ONE (16:13)
[2017-01-01] MEDS ORDERED: RESP: ALBUTEROL 2.5 MG/3 ML NEB (PRN) ONE (16:16)
--- NOTE | 2017-01-01 16:39 | HHI.PR ---
Subjective Patient symptoms today Successful left ureteral stent placement -Patient clear for discharge from Urology standpoint -Follow-up with Urology in clinic in 1-2 weeks. Patient reports has appt with Dr. Reed in 1 week. -Please call with questions Objective Vital Signs Vital Signs Date Time Temp Pulse Resp B/P (MAP) Pulse Ox O2 Delivery O2 Flow Rate FiO2 01/01/17 12:00 98.2 59 18 130/78 (95) 97 01/01/17 08:00 98.2 65 16 131/73 (92) 97 01/01/17 04:00 98.2 70 18 137/69 (91) 95 12/31/16 23:59 96.8 68 18 193/93 (126) 94 12/31/16 22:20 72 18 166/77 (106) 12/31/16 20:37 72 16 166/89 (114) 100 Room Air 12/31/16 19:24 86 16 178/103 (128) 98 Room Air 12/31/16 18:15 98.2 93 20 194/111 (138) 98 Intake & Output 01/01/17 01/01/17 07:00 19:00 Intake Total 480 ml 313 ml Output Total 400 ml 275 ml Balance 80 ml 38 ml Intake Oral 480 ml 60 ml IV Total 253 ml Output Urine Total 400 ml 275 ml # Voids 6 # Bowel Movements 0 Result Diagram: 01/01/17 0535 01/01/17 0535 Medications and IVs Current Medications Medications (Trade) Dose Ordered Sig/Winnie Route Start Time Stop Time Status Last Admin (Flomax) 0.4 mg DAILY PO 12/31/16 22:00 01/01/17 09:04 (NS Flush) 2 ml UNSCH PRN IV FLUSH 12/31/16 22:00 (NS Flush) 2 ml BID IV FLUSH 01/01/17 09:00 01/01/17 09:00 (Zofran Inj) 4 mg Q6H PRN IVP 12/31/16 22:00 01/01/17 10:44 (Tylenol) 650 mg Q6H PRN PO 12/31/16 22:00 (Dilaudid Pf Inj) 1 mg Q3H PRN IV PUSH 12/31/16 22:00 01/01/17 13:38 (Dilaudid) 4 mg Q4H PRN PO 12/31/16 22:00 (Tenisha-Colace) 1 tab BID PO 01/01/17 09:00 (Milk Of Magnesia Liq) 30 ml Q12H PRN PO 12/31/16 22:00 (Senokot) 17.2 mg Q12H PRN PO 12/31/16 22:00 (Dulcolax Supp) 10 mg DAILY PRN RECTAL 12/31/16 22:00 (Lactulose Liq) 30 ml DAILY PRN PO 12/31/16 22:00 (Xanax) 0.5 mg Q8H PRN PO 12/31/16 22:00 01/01/17 09:04 Potassium Chloride/Sodium Chloride 1,000 ml @ 100 mls/hr Q10H IV 01/01/17 09:00 (D50w (Vial) Inj) 50 ml UNSCH PRN IV PUSH 01/01/17 12:30 (Glucagon Inj) 1 mg UNSCH PRN OTHER 01/01/17 12:30 (NovoLOG SUPPLEMENTAL SCALE) 1 ACHS SLIDING SCALE SQ 01/01/17 17:00 (Benadryl Inj) 25 mg Q6H PRN IV PUSH 01/01/17 13:30 01/01/17 13:37 Assessment and Plan Problem List: (1) Obstructive uropathy ICD Code: N13.9 - Obstructive and reflux uropathy, unspecified (2) Recurrent nephrolithiasis ICD Code: N20.0 - Calculus of kidney (3) Left nephrolithiasis ICD Code: N20.0 - Calculus of kidney Delvin Heard MD Jan 01, 2017 16:39
[2017-01-01] MEDS: INSULIN ASPART SUPPLEMENTAL SCALE SQ SCH ×2 (17:00→21:32)
[2017-01-01] MEDS ORDERED: DO NOT ADM ANY ANTICOAGULANT DRUGS PRN (17:00)
[2017-01-01] MEDS ORDERED: IOHEXOL 350 MG/ML 50 ML BTL (for RAD DIAG) OTHER ONE (17:04)
[2017-01-01] MEDS: NS + KCL 20 MEQ INJ 1,000 ML IV SCH ×2 (17:45→19:00)
[2017-01-01 20:00] VITALS: BP 121/72; PULSE 79; RESP 20; TEMP 98.5; O2SAT 95
[2017-01-02] VITALS: BP 113/59; PULSE 77; RESP 20; TEMP 98.4; O2SAT 95
[2017-01-02] MEDS: HYDROmorphone HCL PF 1 MG/ML VIAL IV PUSH PRN ×3 (00:43→08:43)
[2017-01-02] MEDS: ONDANSETRON HCL 4 MG/2 ML VIAL IVP PRN ×2 (03:07→07:59)
[2017-01-02] MEDS: ALPRAZolam 0.5 MG TAB PO PRN (03:21)
[2017-01-02 04:00] VITALS: BP 135/65; PULSE 65; RESP 20; TEMP 98.4; O2SAT 96
[2017-01-02] MEDS: NS + KCL 20 MEQ INJ 1,000 ML IV SCH (04:11)
[2017-01-02 07:22] LABS: AUTOMATED NEUTROPHIL # 6.5 TH/MM3 (1.8-7.7); BASOPHIL % 0.2 % (0.0-2.0); EOSINOPHIL % 0.1 % (0.0-4.0); HEMATOCRIT 35.1 % (35.0-46.0); HEMO FLAGS DIFF FINAL; LYMPH % 20.3 % (9.0-44.0); LYMPHOCYTE # 1.8 TH/MM3 (1.0-4.8); MEAN CELL VOLUME 88.7 FL (80.0-100.0); MEAN CORPUSCULAR HEMOGLOBIN 29.4 PG (27.0-34.0); MEAN CORPUSCULAR HGB CONC 33.1 % (32.0-36.0); MONO % 5.5 % (0.0-8.0); NEUT % 73.9 % (16.0-70.0); PLATELET COUNT 214 TH/MM3 (150-450); RED BLOOD COUNT 3.95 MIL/MM3 (4.00-5.30); RED CELL DISTRIBUTION WIDTH 14.6 % (11.6-17.2); WHITE BLOOD COUNT 8.7 TH/MM3 (4.0-11.0)
[2017-01-02] MEDS: SODIUM CHLORIDE 0.9% FLUSH 10 ML FLUSH IV FLUSH SCH (07:36)
[2017-01-02 07:49] LABS: ANION GAP 9 MEQ/L (5-15); BLOOD UREA NITROGEN 19 MG/DL (7-18); CHLORIDE 106 MEQ/L (98-107); GLOMERULAR FILTRATION RATE 82 ML/MIN (>89); MAGNESIUM 1.9 MG/DL (1.5-2.5); POTASSIUM 3.8 MEQ/L (3.5-5.1); SODIUM (NA) 140 MEQ/L (136-145)
[2017-01-02] MEDS: DOCUSATE SODIUM 50 MG/SENNA 8.6 MG TAB PO SCH (07:59)
[2017-01-02] MEDS: TAMSULOSIN HCL 0.4 MG CAP PO SCH (07:59)
[2017-01-02] MEDS: INSULIN ASPART SUPPLEMENTAL SCALE SQ SCH (07:59)
[2017-01-02 08:00] VITALS: BP 151/87; PULSE 76; RESP 18; TEMP 98.3; O2SAT 97
[2017-01-02 08:04] VITALS: O2SAT 97
--- NOTE | 2017-01-02 09:23 | MP ---
cc: DEBBI NGUYEN MD DATE OF SURGERY 01/01/2017 PREOPERATIVE DIAGNOSIS Left side nephrolithiasis. POSTOPERATIVE DIAGNOSIS Left side nephrolithiasis. SURGEON Debbi Nguyen MD PROCEDURE PERFORMED 1. Cystoscopy. 2. Left ureteral stent placement. PERTINENT FINDINGS 1. Left-sided hydronephrosis, distal obstructing left renal stone. 2. Successful placement of 6 x 22 double J ureteral stent on the left. HISTORY OF THE PRESENT ILLNESS Celina Conley is a 66-year-old female with a history of nephrolithiasis followed by Dr. Reed who underwent recent lithotripsy. She developed severe left-sided flank pain and was found to have a 4.5 cm obstructing left distal ureteral stone and presents now for left ureteral stent placement as her pain is uncontrolled. PROCEDURE IN DETAILS After proper informed consent was obtained the patient was taken to the operating room and laid supine on the operating table. Bilateral SCDs was placed. The patient placed under anesthesia. The patient was in supine position and prepped and draped in the standard sterile fashion. After a proper time out was completed, the scope was placed in the bladder. Bilateral ureters were identified. At this point the left ureteral orifice was identified and a guidewire was advanced in to the left renal pelvis. Mild contrast was administered which identified the proper placement of the left wire into the left collecting system renal pelvis. At this point a 6 x 22 double J ureteral stent was then successfully placed in the left collecting system with good curl in the renal pelvis as well as in the bladder. The patient's bladder was entered and the scope was removed. The patient tolerated the procedure well without complications. DISPOSITION The patient will be discharged home with follow up in the clinic with Dr. Reed for definitive stone management. Debbi Nguyen M.D. SML/KK /4:36 PM /9:16 AM MTDD
--- NOTE | 2017-01-02 09:24 | HHI.PR ---
Subjective Remarks This is a pleasant 66 y/o Female with Urolithiasis, DM II, who came to ER with abdominal pain, Patient does have recent history of urological procedures and she has chronic recurrent renal lithiasis, Patient did just had lithotripsy on December 22. She is followed by Dr. Vazquez on a regular basis. workup done emergency department and found to have obstructive uropathy with 4.5 mm calculus at the left UVJ junction with moderate left hydronephrosis. Patient denies any fever, chills, dysuria, hematuria. has also Hypertension, Hyperlipidemia. 01/02: Seen by Urology specialist now status post Cystoscopy and Left ureteral Stent placement, Clear for discharge by Urology specialist follow up in Urology clinic in 1 to 2 weeks, with Doctor Brianna in one week. with Diagnosis of Obstructive Uropathy, Recurrent nephrolithiasis and left nephrolithiasis. No nausea, vomit or diarrhea, seen in the presence at all times of female nurse Miss Gao. appreciated Objective Vital Signs Date Time Temp Pulse Resp B/P (MAP) Pulse Ox O2 Delivery O2 Flow Rate FiO2 01/02/17 08:04 97 Nasal Cannula 01/02/17 08:00 98.3 76 18 151/87 (108) 97 01/02/17 04:47 18 01/02/17 04:00 98.4 65 20 135/65 (88) 96 01/02/17 00:00 98.4 77 20 113/59 (77) 95 01/01/17 20:00 98.5 79 20 121/72 (88) 95 01/01/17 17:15 83 14 129/76 (93) 100 Nasal Cannula 2 01/01/17 17:00 78 14 160/67 (98) 100 Nasal Cannula 2 01/01/17 16:50 97.4 86 14 143/76 (98) 97 Nasal Cannula 2 01/01/17 12:00 98.2 59 18 130/78 (95) 97 I/O 01/01/17 01/01/17 01/01/17 01/02/17 01/02/17 01/02/17 07:00 15:00 23:00 07:00 15:00 23:00 Intake Total 480 ml 313 ml 1268 ml 1032 ml Output Total 275 ml 0 ml 850 ml Balance 480 ml 38 ml 1268 ml 182 ml Intake Oral 480 ml 60 ml IV Total 253 ml 268 ml 1032 ml Other 1000 ml Output Urine Total 275 ml 850 ml Estimated Blood Loss 0 ml # Voids 4 # Bowel Movements 0 Result Diagram: 01/02/17 0708 01/02/17 0708 Imaging Last Impressions Abdomen/Pelvis CT 12/31/16 0000 Signed Impressions: Service Date/Time: Saturday, December 31, 2016 20:16 - CONCLUSION: 1. Left sided obstructive uropathy and moderate left hydronephrosis with a 4.5 mm calculus at the left UVJ. There are numerous additional 1-2 mm calculi in the distal 5 cm of the left ureter. No right-sided obstructive uropathy. Numerous calculi in both kidneys as above. 2. Hepatic steatosis. Fly Marsh MD Procedures cystoscopy and left ureteral stent. Other Results Laboratory Tests Test 12/31/16 19:00 12/31/16 20:00 01/01/17 05:35 01/02/17 07:08 Urine Color YELLOW Urine Turbidity CLEAR Urine pH 6.0 Urine Specific [place] 1.013 Urine Protein NEG mg/dL Urine Glucose (UA) NEG mg/dL Urine Ketones NEG mg/dL Urine Occult Blood MOD Urine Nitrite NEG Urine Bilirubin NEG Urine Leukocyte Esterase NEG Urine RBC 4-9 /hpf Urine WBC 0-2 /hpf Urine Squamous Epithelial Cells 0-5 /hpf Urine Mucus OCC /lpf Microscopic Urinalysis Comment CULT NOT INDICATED Prothrombin Time 10.1 SEC Prothromb Time International Ratio 0.9 RATIO Activated Partial Thromboplast Time 25.9 SEC Blood Urea Nitrogen 22 MG/DL 19 MG/DL Creatinine 0.73 MG/DL 0.71 MG/DL Random Glucose 206 MG/DL 152 MG/DL Total Protein 6.8 GM/DL Albumin 3.5 GM/DL Calcium Level 8.5 MG/DL 8.5 MG/DL Alkaline Phosphatase 50 U/L Aspartate Amino Transf (AST/SGOT) 18 U/L Alanine Aminotransferase (ALT/SGPT) 38 U/L Total Bilirubin 0.7 MG/DL Sodium Level 141 MEQ/L 140 MEQ/L Potassium Level 3.4 MEQ/L 3.8 MEQ/L Chloride Level 105 MEQ/L 106 MEQ/L Carbon Dioxide Level 27.2 MEQ/L 25.0 MEQ/L White Blood Count 8.7 TH/MM3 Red Blood Count 3.95 MIL/MM3 Hemoglobin 11.6 GM/DL Hematocrit 35.1 % Mean Corpuscular Volume 88.7 FL Mean Corpuscular Hemoglobin 29.4 PG Mean Corpuscular Hemoglobin Concent 33.1 % Red Cell Distribution Width 14.6 % Platelet Count 214 TH/MM3 Mean Platelet Volume 7.4 FL Neutrophils (%) (Auto) 73.9 % Lymphocytes (%) (Auto) 20.3 % Monocytes (%) (Auto) 5.5 % Eosinophils (%) (Auto) 0.1 % Basophils (%) (Auto) 0.2 % Neutrophils # (Auto) 6.5 TH/MM3 Lymphocytes # (Auto) 1.8 TH/MM3 Monocytes # (Auto) 0.5 TH/MM3 Eosinophils # (Auto) 0.0 TH/MM3 Basophils # (Auto) 0.0 TH/MM3 CBC Comment DIFF FINAL Differential Comment Magnesium Level 1.9 MG/DL Anion Gap 9 MEQ/L Estimat Glomerular Filtration Rate 82 ML/MIN Objective Remarks GENERAL: Well-developed, well-nourished, in no acute distress. alert and orientated HEENT: Head is normocephalic without any lesions or masses noted. Facial features are symmetric. Eyes: Pupils equal round reactive to light. Extraocular muscles are intact. Conjunctivae were clear. Oropharyngeal: Pharynx without any erythema edema. Tongue is midline without deviation. Buccal mucosa is moist without any masses or lesions NECK: Supple without any masses. Trachea midline no deviation. No JVD, no bruits are appreciated CARDIAC: Regular rhythm, regular rate. S1/S2 are heard. 2 or 6 ejection murmur , no gallops or rubs. LUNGS: Clear to auscultation bilaterally. No wheeze, rhonchi or rales. No use of accessory muscles on inspiration or expiration. ABDOMEN: Soft, tenderness noted in the left lower quadrant. Nondistended. Bowel sounds heard in all 4 quadrants. No organomegaly or masses. Negative rebound, negative guarding EXTREMITIES: No edema, pulses are equal bilaterally. No cyanosis or clubbing NEUROLOGY: Mood and affect appear appropriate. Cranial nerves II through XII grossly intact. Muscle strength 5/5 in upper and lower extremities bilaterally. Deep tendon reflexes are 2+ in upper and lower extremities bilaterally. Medications and IVs Current Medications Medications (Trade) Dose Ordered Sig/Winnie Route Start Time Stop Time Status Last Admin (Flomax) 0.4 mg DAILY PO 12/31/16 22:00 01/02/17 07:59 (NS Flush) 2 ml UNSCH PRN IV FLUSH 12/31/16 22:00 (NS Flush) 2 ml BID IV FLUSH 01/01/17 09:00 01/01/17 21:33 (Zofran Inj) 4 mg Q6H PRN IVP 12/31/16 22:00 01/02/17 07:59 (Tylenol) 650 mg Q6H PRN PO 12/31/16 22:00 (Dilaudid Pf Inj) 1 mg Q3H PRN IV PUSH 12/31/16 22:00 01/02/17 08:43 (Dilaudid) 4 mg Q4H PRN PO 12/31/16 22:00 (Tenisha-Colace) 1 tab BID PO 01/01/17 09:00 01/02/17 07:59 (Milk Of Magnesia Liq) 30 ml Q12H PRN PO 12/31/16 22:00 (Senokot) 17.2 mg Q12H PRN PO 12/31/16 22:00 (Dulcolax Supp) 10 mg DAILY PRN RECTAL 12/31/16 22:00 (Lactulose Liq) 30 ml DAILY PRN PO 12/31/16 22:00 (Xanax) 0.5 mg Q8H PRN PO 12/31/16 22:00 01/02/17 03:21 Potassium Chloride/Sodium Chloride 1,000 ml @ 100 mls/hr Q10H IV 01/01/17 09:00 01/02/17 04:11 (D50w (Vial) Inj) 50 ml UNSCH PRN IV PUSH 01/01/17 12:30 (Glucagon Inj) 1 mg UNSCH PRN OTHER 01/01/17 12:30 (NovoLOG SUPPLEMENTAL SCALE) 1 ACHS SLIDING SCALE SQ 01/01/17 17:00 01/02/17 07:59 (Benadryl Inj) 25 mg Q6H PRN IV PUSH 01/01/17 13:30 01/01/17 13:37 Miscellaneous Information ALL NURSING DEPARTME... UNSCH PRN .XX 01/01/17 17:00 01/02/17 16:59 A/P Assessment and Plan 66 yrs old female with Left renal lithiasis at UVJ junction with moderate hydronephrosis CT scan does show multiple stones noted in bilateral kidneys. There is a 4.5 mm calculus at the left UVJ junction with moderate hydronephrosis. Status post Cystoscopy and Stent placement on left ureter, by Dr. Heard. now okay to discharge Home and follow with Doctor Shaq Reed in one week. Continue Flomax, discussed with patient about the importance of drinking water. Accelerated hypertension controlled continue Home medicines. DM II controlled blood sugars below 180 mg/dl. will continue home medicines. DVT prevention Sequential compression devices Code Status Full code Discussed Condition With patient and nurse Miss Gao in the room appreciated. Discharge Planning Discharge home today Blake Cedeno MD Jan 02, 2017 09:24
[2017-01-02] MEDS ORDERED: TAMS5CAP PO (10:32)
[2017-01-02] MEDS ORDERED: DILA4TAB10 PO (10:32)
--- NOTE | 2017-01-02 10:44 | HHI.DS ---
Discharge Summary Admission Date Dec 31, 2016 at 21:59 Discharge Date: Jan 02, 2017 Admitting Diagnosis Obstructive Uropathy. (1) Left nephrolithiasis ICD Code: N20.0 - Calculus of kidney Diagnosis: Principal (2) Recurrent nephrolithiasis ICD Code: N20.0 - Calculus of kidney Diagnosis: Principal Procedures Cystoscopy and left Ureteral Stent placement 01/01/17 Brief History - From Admission Written by Tank Brewer, acting as scribe for Dr. Oleary on 01/01/17 at 08 :42. 66-year-old female with rather complex history of renal lithiasis, medullary kidney, diabetes who presented to hospital because acute onset abdominal pain. Patient states that she has normal state of health until 9:30 yesterday morning when she was sitting watching TV and got a sudden onset of sharp stabbing pain in her left flank radiating down into her groin. She states the pain was a 14/10 on a pain scale. Patient does have recent history of urological procedures and she has chronic recurrent renal lithiasis, because of those reasons she knew that she had another kidney stones that he came to the hospital for evaluation. Patient did just had lithotripsy on December 22. She is followed by Dr. Vazquez on a regular basis. She does have follow-up appointment with him next week from her recent lithotripsy. Patient had workup done emergency department and found to have obstructive uropathy with 4.5 mm calculus at the left UVJ junction with moderate left hydronephrosis. Patient denies any fever, chills, dysuria, hematuria. She has had persistent nausea and vomiting despite use of Zofran. Patient was admitted the hospital for further evaluation management. CBC/BMP: 01/02/17 0708 01/02/17 0708 Significant Findings Laboratory Tests Test 12/31/16 19:00 12/31/16 20:00 01/01/17 05:35 01/02/17 07:08 Urine Occult Blood MOD (NEG) Urine RBC 4-9 /hpf (0-3) Blood Urea Nitrogen 21 MG/DL (7-18) 22 MG/DL (7-18) 19 MG/DL (7-18) Random Glucose 205 MG/DL (74-106) 206 MG/DL (74-106) 152 MG/DL (74-106) Potassium Level 3.2 MEQ/L (3.5-5.1) 3.4 MEQ/L (3.5-5.1) Estimat Glomerular Filtration Rate 69 ML/MIN (>89) 80 ML/MIN (>89) 82 ML/MIN (>89) Neutrophils (%) (Auto) 81.2 % (16.0-70.0) 73.9 % (16.0-70.0) Red Blood Count 3.95 MIL/MM3 (4.00-5.30) Imaging Last Impressions Abdomen/Pelvis CT 12/31/16 0000 Signed Impressions: Service Date/Time: Saturday, December 31, 2016 20:16 - CONCLUSION: 1. Left sided obstructive uropathy and moderate left hydronephrosis with a 4.5 mm calculus at the left UVJ. There are numerous additional 1-2 mm calculi in the distal 5 cm of the left ureter. No right-sided obstructive uropathy. Numerous calculi in both kidneys as above. 2. Hepatic steatosis. Fly Marsh MD PE at Discharge GENERAL: Well-developed, well-nourished, in no acute distress. alert and orientated HEENT: wet mucous membranes. NECK: Supple without any masses. Trachea midline no deviation. No JVD, no bruits are appreciated CARDIAC: Regular rhythm, regular rate. S1/S2 are heard. 2 or 6 ejection murmur , no gallops or rubs. LUNGS: Clear to auscultation bilaterally. No wheeze, rhonchi or rales. ABDOMEN: Soft, tenderness noted in the left lower quadrant. Nondistended. EXTREMITIES: No edema, pulses are equal bilaterally. No cyanosis or clubbing NEUROLOGY: Mood and affect appear appropriate. Hospital Course This is a pleasant 66 y/o Female with Urolithiasis, DM II, who came to ER with abdominal pain, Patient does have recent history of urological procedures and she has chronic recurrent renal lithiasis, Patient did just had lithotripsy on December 22. She is followed by Dr. Vazquez on a regular basis. workup done emergency department and found to have obstructive uropathy with 4.5 mm calculus at the left UVJ junction with moderate left hydronephrosis. Patient denies any fever, chills, dysuria, hematuria. has also Hypertension, Hyperlipidemia. 01/02: Seen by Urology specialist now status post Cystoscopy and Left ureteral Stent placement, Clear for discharge by Urology specialist follow up in Urology clinic in 1 to 2 weeks, with Doctor Brianna in one week. with Diagnosis of Obstructive Uropathy, Recurrent nephrolithiasis and left nephrolithiasis. No nausea, vomit or diarrhea, seen in the presence at all times of female nurse Miss Hartmannsa. appreciated Assessment and Plan 66 yrs old female with Left renal lithiasis at UVJ junction with moderate hydronephrosis CT scan does show multiple stones noted in bilateral kidneys. There is a 4.5 mm calculus at the left UVJ junction with moderate hydronephrosis. Status post Cystoscopy and Stent placement on left ureter, by Dr. Heard. now okay to discharge Home and follow with Doctor Shaq Reed in one week. Continue Flomax, discussed with patient about the importance of drinking water. Accelerated hypertension controlled continue Home medicines. DM II controlled blood sugars below 180 mg/dl. will continue home medicines. DVT prevention Sequential compression devices Code Status Full code Discussed Condition With patient and nurse Miss Gao in the room appreciated. Discharge Planning Discharge home today Pt Condition on Discharge: Good Discharge Disposition: Discharge Home Discharge Time: <= 30 minutes Discharge Instructions DIET: Follow Instructions for: Heart Healthy Diet, Diabetic Diet Activities you can perform: Regular-No Restrictions Blake Cedeno MD Jan 02, 2017 10:44
--- NOTE | 2017-01-02 15:34 | EKG ---
Date Performed: 01/01/2017 Time Performed: 14:54:53 PTAGE: 66 years EKG: SINUS BRADYCARDIA WITH SINUS ARRHYTHMIA POSSIBLE INFERIOR MYOCARDIAL INFARCTION , OF INDETE RMINATE AGE When compared to previous tracing, the patient is now Bradycardic. The inferior T wave bonner ggests possible inferior myocardial Infarction-age undeterminate. ABNORMAL ECG PREVIOUS TRACING : 06/17/2000 16.14 DOCTOR: Ashlyn Garza Interpretating Date/Time 01/02/2017 15:32:29
[2017-01-02 16:05] LABS: HEMOGLOBIN A1a 1.2 %; HEMOGLOBIN A1b 2.5 %; HEMOGLOBIN Ao 80.7 %; HEMOGLOBIN LA1C 2.6 %
== END 2017-01-02 11:27 | disposition home or self-care (01) | DRG 694 ==
LOC: PHED 18:08 → PHEDA 21:59 → PH3A 23:05 → N05A 01-01 11:38
PROVIDERS: ADMIT Internal Medicine; ATTEND Internal Medicine
PROC: 0T778DZ Dilation of Left Ureter with Intraluminal Device, Via Natural or Artificial Opening Endoscopic (ICD-10-PCS; principal; 2016-12-31)
DX: N13.0 Hydronephrosis with ureteropelvic junction obstruction (principal); K57.92 Diverticulitis of intestine, part unspecified, without perforation or abscess without bleeding; I10 Essential (primary) hypertension; E11.9 Type 2 diabetes mellitus without complications; E78.5 Hyperlipidemia, unspecified; Z87.442 Personal history of urinary calculi; N13.2 Hydronephrosis with renal and ureteral calculous obstruction; Z79.01 Long term (current) use of anticoagulants; F41.8 Other specified anxiety disorders; Z85.038 Personal history of other malignant neoplasm of large intestine
CPT/HCPCS: 74176; 76937; 80048; 80053; 81001; 82948; 83036; 83735; 85025; 85610; 85730; 93005; 96374; 96375; 96376; C2617; J0131; J0690; J1170; J1200; J1815; J1885; J2405; J3480; J7030; J7120; J7613; Q9967

== ENCOUNTER 2017-05-26 18:08 | Emergency (ER) | payer MEDICARE ==
[~2017-05-26] VITALS: Ht 152.4 cm; Wt 68.0 kg
[~2017-05-26 18:08] MED LIST changes: +TAMS5CAP PO; +ZOFR4TAB3 SL
[2017-05-26 18:12] VITALS: BP 176/89; PULSE 103; RESP 20; TEMP 99.8; O2SAT 95
[2017-05-26] MEDS ORDERED: SODIUM CHLORIDE 0.9% FLUSH 10 ML FLUSH IVF PRN (18:30)
[2017-05-26] MEDS ORDERED: RESP: ALBUTEROL 2.5 MG/IPRATROPIUM 0.5 MG NEB (SCH) INH ONE (18:30)
--- NOTE | 2017-05-26 18:34 | PD ---
HPI Chief Complaint: Cold / Flu Symptoms Time Seen by Provider: 18:30 Travel History International Travel<30 days: No Contact w/Intl Traveler<30days: No Traveled to known affect area: No History of Present Illness HPI 66-year-old female patient with history of diabetes, presents to the ER today for several days history of coughing, coughing up dark phlegm, chest discomfort with coughing, subjective fevers, nausea, vomiting, not feeling well. She had been to an urgent care yesterday and had been prescribed Tessalon Perles, steroids, and an antibiotic, which she started taking last night but states she cannot go to sleep last night, states that she is feeling worse. She denies any abdominal pains, diarrhea, or other issues. She does not know of any sick contacts currently. Modifying Factors: None Associated Signs & Symptoms: Coughing, chest discomfort, not feeling well, dark phlegm, nausea and vomiting Risk Factors: None PFSH Past Medical History Hx Anticoagulant Therapy: Yes Anxiety: Yes Depression: Yes Cancer: Yes (COLON-1998) Cardiovascular Problems: No High Cholesterol: Yes Chemotherapy: No Cerebrovascular Accident: No Diabetes: Yes Diminished Hearing: No Diverticulitis: Yes Endocrine: Yes Gastrointestinal Disorders: Yes (DIVERTICULITIS) Genitourinary: Yes Hepatitis: No Hiatal Hernia: No Hypertension: Yes Immune Disorder: No Kidney Stones: Yes Musculoskeletal: No Neurologic: No Psychiatric: Yes (ANXIETY) Reproductive: No Respiratory: No Renal Failure: No Thyroid Disease: No Menopausal: Yes : 3 Para: 2 Past Surgical History Abdominal Surgery: Yes (COLON RESECTION 1999 2ND TO COLON CA AND DIVERTICULITIS ) Body Medical Devices: NONE Cardiac Surgery: No Ear Surgery: No Endocrine Surgery: No Eye Surgery: No Genitourinary Surgery: Yes (SURGERY TO REMOVE KIDNEY STONES, MULTIPLE LITHOTRIPSY) Gynecologic Surgery: Yes (PARTIAL HYSTERECTOMY) Hysterectomy: Yes Joint Replacement: No Neurologic Surgery: No Oral Surgery: Yes (TONSILLECTOMY) Pacemaker: No Thoracic Surgery: No Other Surgery: Yes (1987, kidney stone - multiple surgerys) Social History Alcohol Use: Yes (SOCIAL) Tobacco Use: No Substance Use: No Allergies-Medications (Allergen,Severity, Reaction): Coded Allergies: No Known Allergies (Verified Allergy, Unknown, 05/26/17) Reported Meds & Prescriptions Reported Meds & Active Scripts Active Dilaudid (Hydromorphone HCl) 4 Mg Tab 4 Mg PO Q4H PRN DO NOT USE THIS MEDICINE IF YOU WILL DRIVE A CAR OR USE A MACHINE, ONLY USE IT WHEN RESTING AT HOME. Reported Tessalon Perles (Benzonatate) 100 Mg Cap 100 Mg PO TID PRN Proair Hfa 8.5 GM Inh (Albuterol Sulfate) 90 Mcg/Act Aer 2 Puff INH Q4-6H PRN 108 mcg/actuation Prednisone 50 Mg Tab 50 Mg PO DAILY Cefdinir 300 Mg Cap 300 Mg PO BID Lipitor (Atorvastatin Calcium) 40 Mg Tab 40 Mg PO HS Hydrochlorothiazide 50 Mg Tab 50 Mg PO BID Metformin (Metformin HCl) 500 Mg Tab 500 Mg PO BIDPC With meals Glimepiride 2 Mg Tab 2 Mg PO DAILY Take with breakfast or first main meal Review of Systems Except as stated in HPI: all other systems reviewed are Neg Physical Exam Narrative GENERAL: Well-developed elderly female patient in mild distress. Awake and oriented 3. SKIN: Focused skin assessment warm/dry. HEAD: Atraumatic. Normocephalic. EYES: Pupils equal and round. No scleral icterus. No injection or drainage. ENT: No nasal bleeding or discharge. Mucous membranes pink and moist. NECK: Trachea midline. No JVD. Supple. CARDIOVASCULAR: Regular rate and rhythm. Notable holosystolic murmur appreciated. RESPIRATORY: No accessory muscle use. Clear to auscultation. Breath sounds equal bilaterally. GASTROINTESTINAL: Abdomen soft, non-tender, nondistended. Hepatic and splenic margins not palpable. MUSCULOSKELETAL: No obvious deformities. No clubbing. No cyanosis. No edema. NEUROLOGICAL: Awake and alert. No obvious cranial nerve deficits. Motor grossly within normal limits. Normal speech. PSYCHIATRIC: Appropriate mood and affect; insight and judgment normal. Data Data Last Documented VS Vital Signs Date Time Temp Pulse Resp B/P (MAP) Pulse Ox O2 Delivery O2 Flow Rate FiO2 05/26/17 19:30 94 18 164/95 (118) 96 Room Air 05/26/17 18:12 99.8 Orders Orders Complete Blood Count With Diff (05/26/17 18:30) Basic Metabolic Panel (Bmp) (05/26/17 18:30) Influenzae A/B Antigen (05/26/17 18:30) Iv Access Insert/Monitor (05/26/17 18:30) Electrocardiogram (05/26/17 18:30) Ecg Monitoring (05/26/17 18:30) Oximetry (05/26/17 18:30) Oxygen Administration (05/26/17 18:30) Chest, Single Ap (05/26/17 18:30) Sodium Chloride 0.9% Flush (Ns Flush) (05/26/17 18:30) Albuterol-Ipratropium Neb (Duoneb Neb) (05/26/17 18:30) Ed Discharge Order (05/26/17 19:49) Labs Laboratory Tests Test 05/26/17 19:13 White Blood Count 8.3 TH/MM3 Red Blood Count 4.86 MIL/MM3 Hemoglobin 14.0 GM/DL Hematocrit 41.8 % Mean Corpuscular Volume 86.1 FL Mean Corpuscular Hemoglobin 28.7 PG Mean Corpuscular Hemoglobin Concent 33.4 % Red Cell Distribution Width 14.5 % Platelet Count 269 TH/MM3 Mean Platelet Volume 7.3 FL Neutrophils (%) (Auto) 76.0 % Lymphocytes (%) (Auto) 17.7 % Monocytes (%) (Auto) 4.6 % Eosinophils (%) (Auto) 0.3 % Basophils (%) (Auto) 1.4 % Neutrophils # (Auto) 6.3 TH/MM3 Lymphocytes # (Auto) 1.5 TH/MM3 Monocytes # (Auto) 0.4 TH/MM3 Eosinophils # (Auto) 0.0 TH/MM3 Basophils # (Auto) 0.1 TH/MM3 CBC Comment DIFF FINAL Differential Comment Blood Urea Nitrogen 14 MG/DL Creatinine 0.65 MG/DL Random Glucose 185 MG/DL Calcium Level 9.1 MG/DL Sodium Level 140 MEQ/L Potassium Level 3.4 MEQ/L Chloride Level 107 MEQ/L Carbon Dioxide Level 25.5 MEQ/L Anion Gap 8 MEQ/L Estimat Glomerular Filtration Rate 91 ML/MIN MDM Medical Decision Making Medical Screen Exam Complete: Yes Emergency Medical Condition: Yes Medical Record Reviewed: Yes Interpretation(s) EKG shows NSR, no ST elevation or depression, and no arrhythmias. No significant T-wave inversions. Laboratory Tests Test 05/26/17 19:13 Neutrophils (%) (Auto) 76.0 % (16.0-70.0) Random Glucose 185 MG/DL (74-106) Potassium Level 3.4 MEQ/L (3.5-5.1) Last 24 hours Impressions Chest X-Ray 05/26/17 1830 Signed Impressions: Service Date/Time: Friday, May 26, 2017 18:31 - CONCLUSION: No acute disease. Fly Marsh MD Differential Diagnosis Bronchitis versus pneumonia versus CHF versus acute URI Narrative Course EKG did not show any signs significant dysrhythmias. Chest x-ray did not show any signs of acute pulmonary processes. Vital signs are stable in the ER. Symptoms will be indicative of a viral syndrome with possible underlying bronchitis. Patient was given albuterol in the ER with some improvement in her symptoms as well. At this point, patient is on multiple medications are ready for bronchitis and sinusitis, is on an antibiotics as well, my plan would be to keep her on these medications. Patient had just started 1 day. I have offered to give her albuterol as well for her bronchitis but she states she already has it at home and she can use the one at home in this case. Return for new issues or worsening in symptoms as necessary. The plan has been discussed with her and she states understanding. She should follow-up next week as necessary with her primary care doctor as well. Diagnosis Primary Impression: Bronchitis Disposition: 01 DISCHARGE HOME Condition: Stable Shu Hawk MD May 26, 2017 18:34
[2017-05-26] MEDS ORDERED: BENZ100 PO (18:38)
[2017-05-26] MEDS ORDERED: ALBUAER3 INH (18:38)
[2017-05-26] MEDS ORDERED: CEFD300C PO (18:38)
[2017-05-26] MEDS ORDERED: PRED50 PO (18:38)
[2017-05-26 18:39] VITALS: O2SAT 99
--- NOTE | 2017-05-26 18:58 | RADRPT ---
EXAM DATE/TIME: 05/26/2017 18:31 [facility] COMPARISON: No previous studies available for comparison. INDICATIONS : Cough, vomiting and short of breath. MEDICAL HISTORY : None. SURGICAL HISTORY : None. ENCOUNTER: Initial ACUITY: 3 days PAIN SCORE: 10/10 LOCATION: Bilateral chest FINDINGS: A single view of the chest demonstrates the lungs to be symmetrically aerated without evidence of mas s, infiltrate or effusion. The cardiomediastinal contours are unremarkable. Osseous structures are intact. CONCLUSION: No acute disease. Fly Marsh MD on May 26, 2017 at 18:55 Board Certified Radiologist. This report was verified electronically.
[2017-05-26 19:00] VITALS: BP 160/80; PULSE 98; RESP 18; O2SAT 97
[2017-05-26 19:26] LABS: AUTOMATED NEUTROPHIL # 6.3 TH/MM3 (1.8-7.7); BASOPHIL # 0.1 TH/MM3 (0-0.2); BASOPHIL % 1.4 % (0.0-2.0); EOSINOPHIL % 0.3 % (0.0-4.0); HEMATOCRIT 41.8 % (35.0-46.0); LYMPH % 17.7 % (9.0-44.0); LYMPHOCYTE # 1.5 TH/MM3 (1.0-4.8); MEAN CELL VOLUME 86.1 FL (80.0-100.0); MEAN CORPUSCULAR HEMOGLOBIN 28.7 PG (27.0-34.0); MEAN CORPUSCULAR HGB CONC 33.4 % (32.0-36.0); MEAN PLATELET VOLUME 7.3 FL (7.0-11.0); MONO % 4.6 % (0.0-8.0); MONOCYTE # 0.4 TH/MM3 (0-0.9); PLATELET COUNT 269 TH/MM3 (150-450); RED BLOOD COUNT 4.86 MIL/MM3 (4.00-5.30); RED CELL DISTRIBUTION WIDTH 14.5 % (11.6-17.2); WHITE BLOOD COUNT 8.3 TH/MM3 (4.0-11.0)
[2017-05-26 19:30] VITALS: BP 164/95; PULSE 94; RESP 18; O2SAT 96
[2017-05-26 19:39] LABS: BICARBONATE 25.5 MEQ/L (21.0-32.0); CALCIUM 9.1 MG/DL (8.5-10.1)
[2017-05-26 19:43] LABS: CREATININE 0.65 MG/DL (0.50-1.00)
[2017-05-26 20:32] VITALS: BP 143/82
--- NOTE | 2017-05-28 00:32 | EKG ---
Date Performed: 05/26/2017 Time Performed: 18:41:31 PTAGE: 66 years EKG: Sinus rhythm WITH OCCASIONAL SUPRAVENTRICULAR PREMATURE COMPLEXES BORDERLINE ECG PREVIOUS TRACING : 01/01/2017 14.54 Compared to previous tracing, rate has increased DOCTOR: Francesco Helton Interpretating Date/Time 05/28/2017 00:31:11
== END 2017-05-26 20:43 | disposition home or self-care (01) ==
LOC: PHED 18:08
DX: J40 Bronchitis, not specified as acute or chronic (principal); R94.31 Abnormal electrocardiogram [ECG] [EKG]; E11.9 Type 2 diabetes mellitus without complications; F32.9 Major depressive disorder, single episode, unspecified; F41.9 Anxiety disorder, unspecified; E78.00 Pure hypercholesterolemia, unspecified; I10 Essential (primary) hypertension; Z85.038 Personal history of other malignant neoplasm of large intestine
CPT/HCPCS: 71045; 80048; 85025; 87804; 93005; 94664; 99285